=== PATIENT | female | born 1940 | race Caucasian/White ===

== ENCOUNTER 2022-10-27 06:35 | Observation (INO) | payer MEDICARE, MEDICAID, SELFPAY ==
[2022-10-27] VITALS (25 sets, daily range): BP systolic 93–124; BP diastolic 45–88; PULSE 60–112; RESP 12–90; TEMP 36.2–36.7; O2SAT 90–100; BMI 32.5
--- NOTE | ~2022-10-27 | CT_ITS ---
EXAMINATION: CT abdomen pelvis w con INDICATION: Vomiting and diarrhea TECHNIQUE: Computed tomographic images of the abdomen and pelvis were obtained after the administrati on of 100 cc of Omnipaque 350 intravenous contrast. The dose-length product (DLP) was 1001.97 mGy-cm. Automated exposure control and iterative reconstruction technique were employed. COMPARISON: None available FINDINGS: Minimal dependent atelectasis is present in the lung bases. The heart size is normal. There is a small sliding hiatal hernia. The gallbladder is surgically absent. There is mild enlargement of the common bile duct and central intrahepatic ducts which is likely due to post cholecystectomy stat e. There is focal fatty infiltration of the liver near the ligamentum teres. The spleen, pancreas, an d adrenal glands are normal. There is a 2 mm nonobstructing stone of the left kidney. The right kidne y is unremarkable. No pathologically enlarged abdominal or pelvic lymph nodes are identified. There i s calcified atherosclerosis of the aorta and many of the other arteries. No free intraperitoneal gas or evidence of bowel obstruction. Colonic diverticulosis is present without evidence of diverticuliti s. The appendix is normal. There is circumferential wall thickening of the urinary bladder. Thoracic and lumbar compression fractures are noted. IMPRESSION: 1. Circumferential wall thickening of the urinary bladder likely reflecting cystitis given patient's abnormal urinalysis. Reviewed, dictated and finalized at location A. IMPRESSION: 1. Circumferential wall thickening of the urinary bladder likely reflecting cys titis given patient's abnormal urinalysis.
--- NOTE | ~2022-10-27 | XR_ITS ---
EXAMINATION: XR chest 1V portable INDICATION: Weakness TECHNIQUE: Portable AP chest at 0806 hours COMPARISON: None available FINDINGS: There is mild atelectasis of the lung bases. The lungs are free of focal airspace opacities . No pleural effusion or pneumothorax. The cardiomediastinal silhouette is normal. Calcified pulmonar y nodules are consistent with old granulomatous disease. IMPRESSION: 1. Mild atelectasis of the lung bases. Reviewed, dictated and finalized at location A.
--- NOTE | 2022-10-27 07:08 | PC.NURSE ---
Patient report received from CHAU Kerr. All questions answered and care of patient assumed.
--- NOTE | 2022-10-27 07:33 | ED.NAVMDI ---
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 Patient reports chronic abdominal bloating. She states she prayed to GOD to help her with her bloating but she did not know it would present like this. Last night she reports having nausea and vomiting. She reports her emesis was brown. She also states she was told by retirement staff that she had diarrhea and it was brown. She was unable to see color of stool or consistency of her stool. She denies current nausea. She denies abdominal pain, chest pain, sob, or fever. She states she was told not to eat tomatoes due to her history of esophagitis but yesterday she at [facility] with tomato sauce for dinner. Related Data Home Medications Medication Instructions Recorded Confirmed acetaminophen 325 mg capsule 650 mg PO PRN PRN Pain 10/27/22 10/27/22 (Tylenol) amlodipine 5 mg tablet 5 mg PO DAILY 10/27/22 10/27/22 apixaban 5 mg tablet (Eliquis) 5 mg PO BID 10/27/22 10/27/22 atorvastatin 80 mg tablet 80 mg PO HS 10/27/22 10/27/22 benzonatate 100 mg capsule 100 mg PO TID PRN Cough 10/27/22 10/27/22 carvedilol 6.25 mg tablet (Coreg) 6.25 mg PO DAILY 10/27/22 10/27/22 cetylpyridinium chloride 1 michael mucous membrane Q2H PRN Sore 10/27/22 10/27/22 Throat citalopram 10 mg tablet 10 mg PO DAILY 10/27/22 10/27/22 famotidine 20 mg tablet 20 mg PO DAILY 10/27/22 10/27/22 ferrous sulfate 325 mg (65 mg 325 mg PO TID 10/27/22 10/27/22 iron) tablet gabapentin 300 mg capsule 300 mg PO HS 10/27/22 10/27/22 guaifenesin 600 mg tablet, 600 mg PO HS 10/27/22 10/27/22 extended release 12 hr (Mucinex) insulin aspart U-100 100 unit/mL sliding scale dose subcut ACHS 10/27/22 (3 mL) subcutaneous pen (Novolog FlexPen U-100 Insulin aspart) insulin glargine 100 unit/mL 30 unit subcut HS 10/27/22 10/27/22 subcutaneous cartridge lisinopril 40 mg tablet 40 mg PO DAILY 10/27/22 10/27/22 loperamide 2 mg capsule 2 mg PO ONCE 10/27/22 10/27/22 loratadine 10 mg tablet (Claritin) 10 mg PO DAILY 10/27/22 10/27/22 polysorbate 80-glycerin 1 %-1 % 1 drp ophthalmic (eye) BID 10/27/22 10/27/22 eye drops in a dropperette potassium chloride 20 mEq 20 meq PO DAILY 10/27/22 10/27/22 tablet,extended release sitagliptin phosphate 50 mg tablet 50 mg PO DAILY 10/27/22 10/27/22 (Januvia) Allergies Allergy/AdvReac Type Severity Reaction Status Date / Time Penicillins Allergy Swelling Verified 10/27/22 06:43 of Lip/Tongue/Throat Review of Systems Constitutional: Constitutional: Denies weakness Cardiovascular: Cardiovascular: Denies syncope, Denies rapid heart rate, Denies irregular heart rhythm, Denies leg edema and Denies dyspnea Respiratory: Respiratory: Denies chest congestion, Denies hemoptysis, Denies excessive phlegm production and Denies dyspnea Gastrointestinal: Gastrointestinal: Denies abdominal pain, Reports bloating, Denies hematochezia, Reports constipation, Reports diarrhea, Reports nausea and Reports vomiting Genitourinary: Genitourinary: Denies hematuria and Denies dysuria Musculoskeletal: Musculoskeletal: Denies joint swelling, Denies loss of height and Reports muscle weakness (chronic right side) Neurologic: Denies syncope, Reports focal weakness (right leg weakness) and Denies weakness PMFSH Past Medical History Medical History (Updated 10/27/22 @ 13:08 by Vi Cash PAMinal) Arteriovenous malformation of gastrointestinal tract Atrial fibrillation Cerebrovascular accident GERD with esophagitis
[2022-10-27] MEDS: SODIUM CHLORIDE 0.9% IV 1,000 ML 999 ML IV CONT (07:43)
[2022-10-27] MEDS: PANTOPRAZOLE SODIUM IV 40 MG VIAL IV PUSH ×2 (07:43→20:28)
[2022-10-27] MEDS: ONDANSETRON INJ 4 MG/2 ML VIAL IV PUSH ×2 (07:43→20:28)
[2022-10-27 08:19] LABS: Basophils Absolute Auto 0.1 K/mm3 (0.0-0.1); Basophils Percent Auto 0.6 % (0.2-1.2); Eosinophils Absolute Auto 0.4 K/mm3 (0-0.3); Eosinophils Percent Auto 2.5 % (0-4.4); Hematocrit 45.4 % (37.0-47.0); Hemoglobin 14.7 g/dL (12.0-15.0); Immature Granulocyte Absolute 0.09 K/mm3 (0.00-0.031); Immature Granulocyte Percent A 0.6 % (0-0.5); Lymphocytes Absolute Auto 2.38 K/mm3 (0.9-3.2); Lymphocytes Percent Auto 14.9 % (18.3-44.2); Mean Corpuscular HGB Conc 32.4 g/dl (32-36); Mean Corpuscular Hemoglobin 30.6 pg (26-34); Mean Corpuscular Volume 94.4 fl (80-100); Mean Platelet Volume 10.6 fl (7.4-10.4); Monocytes Percent Auto 6.5 % (2.6-8.5); Neutrophils Absolute Auto 11.9 K/mm3 (1.3-6.7); Neutrophils Percent Auto 74.9 % (45.5-73.1); Platelet Count Result 269 k/mm3 (150-375); Red Blood Count 4.81 M/mm3 (4.2-5.4); Red Cell Distribution Width 13.2 % (11.5-14.5); White Blood Count 15.9 K/mm3 (4.5-10.0)
[2022-10-27 08:29] LABS: Alanine Aminotransferase 19 U/L (6-35); Albumin Level 4.5 g/dL (3.5-5.1); Alkaline Phosphatase 126 U/L (38-126); Anion Gap 8 mmol/L (8-16); Aspartate Amino Transferase 27 U/L (14-36); Bilirubin,Total 0.7 mg/dL (0.2-1.3); Blood Urea Nitrogen 13 mg/dL (7-17); Calcium 9.4 mg/dL (8.4-10.2); Carbon Dioxide 28 mmol/L (22-30); Chloride 107 mmol/L (98-107); Estimated CRCL calculation 44 ml/min; Estimated Glomerular Filt Rate 60; Glucose 188 mg/dL (65-110); Lipase 166 U/L (23-300); Potassium 4.1 mmol/L (3.4-5.0); Sodium 143 mmol/L (137-145)
[2022-10-27 08:38] LABS: Appearance Urine Turbid (Clear); Bacteria Urine 4+ /hpf; Bilirubin Urine Negative (Negative); Blood Urine 2+ (Negative); Color Urine Yellow (Yellow); Glucose Urine UA Negative (Negative); Ketones Urine Negative (Negative); Leukocyte Esterase Ur 3+ LEU/UL (Negative); Nitrate Urine Negative (Negative); Non Pathogenic Casts 0-2; Protein Urine 1+ mg/dL (Negative); RBC Urine 0-2 /hpf (0-2); Specific Grav Ur 1.013 (1.001-1.035); Squamous Epithelial Cell Urine Many /hpf (Few); Urobilinogen Urine 0.2 mg/dL (<2.0); WBC Clumps Urine Present /HPF; WBC Urine >100 /hpf
[2022-10-27 08:40] LABS: Add Urine Microscopic? YES
--- NOTE | 2022-10-27 08:51 | PC.NURSE ---
Patient off unit to CT.
[2022-10-27 08:54] LABS: Lactic Acid Reflex 1.6 mmol/L (0.7-2.0)
--- NOTE | 2022-10-27 11:15 | ADMGEN ---
This patient, Rashaun Pimentel, was admitted to Medical Room 244-. Patient/family oriented to hospital policies and general routines including ID bracelet, bed and alarms, visiting hours, pain management, procedures, bathroom and other care routines, personal items, smoking policy, room service/diet, and visiting hours. Information on how to activate the Rapid Response Team has been discussed. Patient/Family are encouraged to report perceived risks to care and to ask questions if they do not understand what they are told or what they should do. Report received from CHAU Mendoza
[2022-10-27 11:58] LABS: Glucose Point of Care 170 mg/dl (65-105)
--- NOTE | 2022-10-27 12:58 | PM.IMHP ---
H&P: HPI History of Present Illness Date/Time: 10/27/22 13:00 Chief Complaint: Vomiting and diarrhea. Narrative: This is an 82-year-old female with history of stroke, atrial fibrillation, GERD, esophagitis, GI AVMs, hypertension, and diabetes who presented to the emergency department via EMS from [facility] for evaluation of vomiting and diarrhea. Last night she developed nausea and she reports having multiple episodes of what sounds like coffee-ground emesis. She also had several episodes of diarrhea however she is unable to say whether or not there was blood in the stools as she did not look at it though [facility] staff told her it looked brown. She has frequent abdominal bloating which is not new for her and today is no different. She has a history of esophagitis and was told not to eat tomatoes however yesterday she had ravioli with tomato sauce for dinner. She wonders if this precipiated her symptoms. On arrival to the emergency department her blood pressure was 93/69 but that has improved significantly with IV fluids. Labs were significant for a WBC count of 15.9, hemoglobin 14.7, and a relatively unremarkable CMP aside from a random glucose of 188. Urine was negative for nitrates but showed 3+ leukocyte esterase, > 100 WBC, WBC clumps, 4+ bacteria, and many squamous cells. CT of the abdomen and pelvis showed circumferential wall thickening of the urinary bladder likely reflecting cystitis. Stool was Hemoccult positive. She was given a dose of ceftriaxone for suspected urinary tract infection and she is being admitted in this setting for close observation and GI consultation given reports of hematemesis. Review of Systems Review of Systems: Twelve systems were reviewed. No fever, chills, or sweats. No recent cold or flu symptoms. She denies epigastric and abdominal pain. She denies overt dysuria. No epigastric or abdominal pain. She is transferred with a Siva lift as she has essentially no movement of the right leg from a previous stroke. Except as documented, all other systems were reviewed and are negative. 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 Grandparent Hypertension Social History Social History Social History: Surrogate medical decision maker: Myriam Cohn, daughter. Code status: Full code. Smoking status: Never smoker Second hand tobacco smoke exposure: Yes (as a child) Alcohol intake: never Substance use: never Lack of Transportation: No Lack of Food: Never True Current Housing: I Have Housing Concerned About Future Housing: No Difficulty Paying Gas/Electric Bills: No Difficulty Paying for Meds: No Currently Unemployed: No Education: High School Diploma/GED Difficulty w/ Childcare or Family Care: No Additional living arrangements comments: [facility]. Spiritual care concerns: Yes (Faith) Meds Home Medications and Allergies Home Medications Medication Instructions Recorded Confirmed Type acetaminophen 325 mg capsule 650 mg PO PRN PRN Pain 10/27/22 10/27/22 History (Tylenol) amlodipine 5 mg tablet 5 mg PO DAILY 10/27/22 10/27/22 History apixaban 5
[2022-10-27] MEDS: SODIUM CHLORIDE 0.9% IV 1,000 ML 125 ML IV CONT ×2 (13:39→20:27)
[2022-10-27 14:49] LABS: Hematocrit 41.6 % (37.0-47.0); Hemoglobin 13.1 g/dL (12.0-15.0)
[2022-10-27 14:58] LABS: Hemoglobin A1C 6.3 % (<5.7)
[2022-10-27 17:11] LABS: Glucose Point of Care 275 mg/dl (65-105)
[2022-10-27] MEDS: INSULIN ASPART (*BKC) 100 UNITS/ML SUB-Q (17:18)
[2022-10-27 20:24] LABS: Hemoglobin 12.5 g/dL (12.0-15.0)
[2022-10-27] MEDS: ATORVASTATIN 40 MG TABLET 80 MG PO (20:28)
[2022-10-27] MEDS: GABAPENTIN 300 MG CAPSULE PO (20:28)
[2022-10-27] MEDS: ACETAMINOPHEN 325 MG TABLET 650 MG PO (20:28)
[2022-10-27] MEDS: guaiFENesin 12 HR 600 MG TABCR PO (20:28)
[2022-10-27 20:41] LABS: Glucose Point of Care 168 mg/dl (65-105)
[2022-10-28] VITALS (12 sets, daily range): BP systolic 106–138; BP diastolic 52–76; PULSE 79–104; RESP 16–18; TEMP 36.3–36.9; O2SAT 93–96
[2022-10-28 03:50] LABS: Basophils Absolute Auto 0.1 K/mm3 (0.0-0.1); Basophils Percent Auto 0.4 % (0.2-1.2); Eosinophils Absolute Auto 0.6 K/mm3 (0-0.3); Eosinophils Percent Auto 5.3 % (0-4.4); Hematocrit 36.9 % (37.0-47.0); Hemoglobin 11.7 g/dL (12.0-15.0); Immature Granulocyte Absolute 0.04 K/mm3 (0.00-0.031); Immature Granulocyte Percent A 0.4 % (0-0.5); Lymphocytes Absolute Auto 3.17 K/mm3 (0.9-3.2); Lymphocytes Percent Auto 27.8 % (18.3-44.2); Mean Corpuscular HGB Conc 31.7 g/dl (32-36); Mean Corpuscular Hemoglobin 30.5 pg (26-34); Mean Corpuscular Volume 96.3 fl (80-100); Mean Platelet Volume 10.2 fl (7.4-10.4); Monocytes Percent Auto 8.7 % (2.6-8.5); Neutrophils Absolute Auto 6.6 K/mm3 (1.3-6.7); Neutrophils Percent Auto 57.4 % (45.5-73.1); Platelet Count Result 217 k/mm3 (150-375); Red Blood Count 3.83 M/mm3 (4.2-5.4); Red Cell Distribution Width 13.4 % (11.5-14.5); White Blood Count 11.4 K/mm3 (4.5-10.0)
[2022-10-28 04:03] LABS: Alanine Aminotransferase 15 U/L (6-35); Albumin Level 3.3 g/dL (3.5-5.1); Alkaline Phosphatase 75 U/L (38-126); Anion Gap 6 mmol/L (8-16); Aspartate Amino Transferase 21 U/L (14-36); Bilirubin,Total 0.6 mg/dL (0.2-1.3); Blood Urea Nitrogen 9 mg/dL (7-17); Calcium 7.6 mg/dL (8.4-10.2); Carbon Dioxide 24 mmol/L (22-30); Chloride 108 mmol/L (98-107); Estimated CRCL calculation 56 ml/min; Estimated Glomerular Filt Rate > 60; Glucose 170 mg/dL (65-110); Magnesium 1.7 mg/dL (1.6-2.3); Potassium 3.3 mmol/L (3.4-5.0); Sodium 138 mmol/L (137-145)
[2022-10-28] MEDS: PANTOPRAZOLE SODIUM IV 40 MG VIAL IV PUSH ×2 (08:27→20:40)
[2022-10-28 08:33] LABS: Glucose Point of Care 142 mg/dl (65-105)
[2022-10-28] MEDS: LORATADINE 10 MG TABLET PO (09:00)
[2022-10-28] MEDS: CITALOPRAM HYDROBROMIDE 10 MG TABLET PO (09:02)
--- NOTE | 2022-10-28 10:28 | PM.IMPN ---
Progress Note: A&P Assessment and Plan (1) GI bleeding: Code(s): K92.2 - Gastrointestinal hemorrhage, unspecified Status: Acute Assessment and Plan: She had what sounds like hematemesis last evening and her stool was occult blood on exam today. Blood pressures were a bit soft on arrival but have been stable since receiving IV fluids. Her hemoglobin has been stable thus far. GI consulted. (2) Cystitis: Code(s): N30.90 - Cystitis, unspecified without hematuria Status: Acute Assessment and Plan: Circumferential wall thickening of the urinary bladder noted on CT and in conjunction with abnormal urinalysis she has been started on ceftriaxone, pending urine culture. (3) Atrial fibrillation: Code(s): I48.91 - Unspecified atrial fibrillation Status: Acute Assessment and Plan: Continue carvedilol. Hold Eliquis given GI bleeding. (4) Type 2 diabetes mellitus: Code(s): E11.9 - Type 2 diabetes mellitus without complications Status: Acute Assessment and Plan: Initiate sliding scale insulin, Accu-Cheks, and hypoglycemic protocol. Check hemoglobin A1c. (5) Hypertension: Code(s): I10 - Essential (primary) hypertension Status: Acute Assessment and Plan: Continue carvedilol with parameters. Hold other antihypertensives given soft blood pressures on arrival. Plan Medical decision making narrative ? History obtained from: Patient. ? History from independent sources: None. ? External chart review: n/a ? New problems addressed: GI bleeding, cystitis. ? Chronic illnesses addressed: Diabetes, hypertension, atrial fibrillation. ? Independent interpretation of studies: Labs, imaging, EKG, and all reports were personally reviewed. ? Diagnostic tests considered but not ordered: None. ? Shared decision making: Findings were reviewed and discussed with the patient, including plans for further workup and treatment options. Questions solicited and answered to satisfaction. Patient agrees with current plan of care. Subjective Date/time seen: 10/28/22 10:28 Interval history: noNew complaints Exam Narrative: General: Nontoxic-appearing female sitting up in bed in no acute distress. Weight: 83.5 kg. BMI: 32.6. HEENT: PERRL, EOMI. Sclera anicteric. Mouth is a bit dry. She is edentulous. Neck: Supple. Respiratory: Lungs are clear to auscultation bilaterally. Cardiovascular: Regular rate and rhythm with S1-S2. Gastrointestinal: Abdomen is soft, obese, nontender, and nondistended with positive bowel sounds. Skin: Warm and dry. No rash or lesions on limited exam. Extremities: No cyanosis or clubbing. Trace lower extremity bilaterally. Neurological: Alert and oriented. Cranial nerves 2-12 are grossly intact. She has significant weakness of her right lower leg from previous stroke. Psychiatric: Pleasant and cooperative with normal mood and affect. Judgment and insight intact. Objective Data Vital Signs Vital Signs: Vital Signs - 24 hr 10/27/22 10:30 10/27/22 10:31 10/27/22 12:00 Temperature Pulse Rate 90 95 87 Respiratory Rate 12 20 Blood Pressure 113/81 Pulse Oximetry 96 Oxygen Delivery 10/27/22 13:41 10/27/22 16:00 10/27/22 20:53 Temperature 98.1 F Pulse Rate 82 89 Respiratory Rate 18 Blood Pressure 115/46 L Pulse Oximetry 95 Oxygen Delivery Room Air 10/27/22 21:44 10/27/22 21:47 10/27/22 20:00 Temperature 97.2 F L 97.2 F L Pulse Rate 60 91 91 Respiratory Rate 90 H 17 Blood Pressure 112/45 L 113/51 L Pulse Oximetry 90 90 Oxygen Delivery 10/27/22 20:00 10/28/22 05:15 10/28/22 00:00 Temperature 98.4 F Pulse Rate 91 104 H 102 H Respiratory Rate 17 17 Blood Pressure 108/55 L Pulse Oximetry 90 93 Oxygen Delivery Room Air 10/28/22 04:00 10/28/22 07:43 10/28/22 07:43 Temperature 98.4 F Pulse Rate 79 Respiratory Rate Blood Pressure 108/55 L Pulse
[2022-10-28 12:19] LABS: Glucose Point of Care 141 mg/dl (65-105)
--- NOTE | 2022-10-28 15:01 | WPDGICN ---
Assessment and Plan Assessment and plan (1) Coffee ground emesis: Code(s): K92.0 - Hematemesis Status: Acute Assessment and Plan: Patient is reported to have had coffee-ground emesis at the [facility] suggesting possible gastritis or ulceration. EGD will be performed given risk of anticoagulation and occult blood in stool. Hemoglobin has declined from 14-11.7 since admission. Likely partially because of rehydration. 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 Apparently because of atrial fibrillation. This will need to be held until it is safe to resume. EGD and colonoscopy will be anticipated. Preparation today with procedure in the morning. (4) History of CVA (cerebrovascular accident): Code(s): Z86.73 - Personal history of transient ischemic attack (TIA), and cerebral infarction without residual deficits Status: Acute (5) Positive fecal occult blood test: Code(s): R19.5 - Other fecal abnormalities Status: Acute Assessment and Plan: Patient found to have occult blood in stool. Patient has been Eliquis and with Eliquis. Potentially related to history of coffee-ground emesis but other lesions cannot be excluded. Given her anticoagulation possible need for continuing this anticoagulation and decline in hemoglobin from 14-11.7 will plan to proceed with colonoscopy an EGD in morning. GI Consult Note Consult date/time: 10/28/22 15:01 Reason for consult: Occult blood in stool, coffee-ground emesis HPI: Rashaun Pimentel is a 82 year old female I am asked to see at the request of the hospitalist service. Patient is in the [facility] because of a CVA in residual right foot drop. She has a history of atrial fibrillation is reported to have had esophagitis in angiodysplasias of the intestinal tract. No old records are available for my review. Patient noted to have coffee-ground emesis at the [facility] apparently on Friday and was admitted the hospital for further evaluation. In the emergency room she was noted to have Hemoccult-positive stools. Patient reports currently she feels fine but is somewhat hungry not being allowed to eat since admission the hospital. After admission hospital patient was found to have cystitis is presumed to have urinary tract infection. Family history is noncontributory. Patient states she has been on blood thinners. The exact 8 because of the atrial fibrillation.. Medications the time of presentation include Eliquis. Review of Systems Review of Systems: Review of systems noncontributory. 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 Grandparent Hypertension Social History Social History Social History: Surrogate medical decision maker: Myriam Cohn, daughter. Code status: Full code. Smoking status: Never smoker Second hand tobacco smoke exposure: Yes (as a child) Alcohol intake: never Substance use: never Lack of Tr
[2022-10-28] MEDS: PEG (High)/E-LYTE SOLN 4,000 ML BTL 4000 ML PO (16:02)
[2022-10-28] MEDS: carvediloL 6.25 MG TABLET PO (16:03)
--- NOTE | 2022-10-28 16:52 | PC.NURSE ---
Bowel prep started after med delivered at 1602.
[2022-10-28 17:03] LABS: Glucose Point of Care 205 mg/dl (65-105)
[2022-10-28] MEDS: INSULIN ASPART (*BKC) 100 UNITS/ML SUB-Q ×2 (17:54→20:41)
[2022-10-28 20:33] LABS: Glucose Point of Care 216 mg/dl (65-105)
[2022-10-28] MEDS: SODIUM CHLORIDE 0.9% IV 1,000 ML 125 ML IV CONT (20:38)
[2022-10-28] MEDS: ATORVASTATIN 40 MG TABLET 80 MG PO (20:39)
[2022-10-28] MEDS: GABAPENTIN 300 MG CAPSULE PO (20:40)
[2022-10-28] MEDS: guaiFENesin 12 HR 600 MG TABCR PO (20:40)
[2022-10-28] MEDS: ACETAMINOPHEN 325 MG TABLET 650 MG PO (20:45)
[2022-10-29] VITALS (15 sets, daily range): BP systolic 127–150; BP diastolic 69–92; PULSE 80–104; RESP 14–24; TEMP 36.2–36.8; O2SAT 94–98
[2022-10-29 08:22] LABS: Glucose Point of Care 138 mg/dl (65-105)
--- NOTE | 2022-10-29 08:34 | PC.NURSE ---
Called GI lab to inform that patient did not finish and not tolerating bowel prep. Stools are clear yellow liquid. Asked if patient needs to continue bowel prep or is ok to stop. Amie from GI stated she's ok to stop bowel prep.
[2022-10-29] MEDS: LORATADINE 10 MG TABLET PO (08:44)
[2022-10-29] MEDS: PANTOPRAZOLE SODIUM IV 40 MG VIAL IV PUSH ×2 (08:44→20:30)
[2022-10-29] MEDS: carvediloL 6.25 MG TABLET PO (08:44)
[2022-10-29] MEDS: CITALOPRAM HYDROBROMIDE 10 MG TABLET PO (08:44)
--- NOTE | 2022-10-29 10:28 | PM.IMPN ---
Progress Note: A&P Assessment and Plan (1) GI bleeding: Code(s): K92.2 - Gastrointestinal hemorrhage, unspecified Status: Acute Assessment and Plan: monitor hemoglobin. Plan for EGD today. (2) Cystitis: Code(s): N30.90 - Cystitis, unspecified without hematuria Status: Acute Assessment and Plan: Circumferential wall thickening of the urinary bladder noted on CT and in conjunction with abnormal urinalysis she has been started on ceftriaxone, pending urine culture. (3) Atrial fibrillation: Code(s): I48.91 - Unspecified atrial fibrillation Status: Acute Assessment and Plan: Continue carvedilol. Hold Eliquis given GI bleeding. (4) Type 2 diabetes mellitus: Code(s): E11.9 - Type 2 diabetes mellitus without complications Status: Acute Assessment and Plan: Initiate sliding scale insulin, Accu-Cheks, and hypoglycemic protocol. Check hemoglobin A1c. (5) Hypertension: Code(s): I10 - Essential (primary) hypertension Status: Acute Assessment and Plan: Continue carvedilol with parameters. Hold other antihypertensives given soft blood pressures on arrival. Subjective Date/time seen: 10/29/22 10:28 Interval history: New complaints. No bleeding noted. Tolerating IV antibiotics Exam Narrative: General: Nontoxic-appearing female sitting up in bed in no acute distress. Weight: 83.5 kg. BMI: 32.6. HEENT: PERRL, EOMI. Sclera anicteric. Mouth is a bit dry. She is edentulous. Neck: Supple. Respiratory: Lungs are clear to auscultation bilaterally. Cardiovascular: Regular rate and rhythm with S1-S2. Gastrointestinal: Abdomen is soft, obese, nontender, and nondistended with positive bowel sounds. Skin: Warm and dry. No rash or lesions on limited exam. Extremities: No cyanosis or clubbing. Trace lower extremity bilaterally. Neurological: Alert and oriented. Cranial nerves 2-12 are grossly intact. She has significant weakness of her right lower leg from previous stroke. Psychiatric: Pleasant and cooperative with normal mood and affect. Judgment and insight intact. Objective Data Vital Signs Vital Signs: Vital Signs - 24 hr 10/28/22 15:12 10/28/22 16:03 10/28/22 12:00 Temperature 97.4 F L Pulse Rate 86 80 89 Respiratory Rate 16 Blood Pressure 106/52 L Pulse Oximetry 94 Oxygen Delivery 05/22/23 16:00 10/28/22 20:00 10/28/22 20:03 Temperature 98.5 F 98.5 F Pulse Rate 90 93 93 Respiratory Rate 18 18 Blood Pressure 138/76 136/74 Pulse Oximetry 96 96 Oxygen Delivery 10/28/22 21:02 10/28/22 20:00 10/28/22 20:00 Temperature 98.5 F Pulse Rate 93 93 93 Respiratory Rate 18 18 Blood Pressure 138/76 Pulse Oximetry 96 96 Oxygen Delivery Room Air 10/29/22 00:00 10/29/22 05:17 10/29/22 04:00 Temperature 98.3 F Pulse Rate 104 H 83 94 Respiratory Rate 18 Blood Pressure 135/69 Pulse Oximetry 96 Oxygen Delivery 10/29/22 08:44 10/29/22 08:45 Temperature Pulse Rate 93 85 Respiratory Rate 14 Blood Pressure 148/75 H Pulse Oximetry 94 Oxygen Delivery Intake/Output Intake/Output: Intake & Output 10/26/22 10/27/22 10/28/22 10/29/22 23:59 23:59 23:59 23:59 Intake Total 2620 1650 Output Total 100 Balance 2520 1650 Meds/Results Medications: Active Medications Generic Name Dose Route Start Last Admin Trade Name Freq PRN Reason Stop Dose Admin Acetaminophen 650 mg 10/27/22 13:08 10/28/22 20:45 Acetaminophen 325 Mg Tablet PO 650 mg Q6H PRN Administration Mild Pain (1-3) or Fever Atorvastatin Calcium 80 mg 10/27/22 21:00 10/28/22 20:39 Atorvastatin 40 Mg Tablet PO 80 mg HS ELIZABETH Administration Carvedilol 6.25 mg 10/28/22 09:00 10/29/22 08:44 Carvedilol 6.25 Mg Tablet PO 6.25 mg DAILY ELIZABETH Administration Citalopram Hydrobromide 10 mg 10/28/22 09:00 10/29/22 08:44 Citalopram Hydrob
[2022-10-29 12:26] LABS: Glucose Point of Care 152 mg/dl (65-105)
[2022-10-29] MEDS: SODIUM CHLORIDE 0.9% IV 1,000 ML 125 ML IV CONT (13:18)
[2022-10-29] MEDS: LACTATED RINGERS 1,000 ML 150 ML IV CONT (13:56)
[2022-10-29 14:02] LABS: Glucose Point of Care 155 mg/dl (65-105)
--- NOTE | 2022-10-29 14:29 | WPDANESEPPF ---
Anes - Initial Pre Proc Eval Procedure: Operation Date: 10/29/22 14:45 Proposed Procedures p Esophagogastroduodenoscopy & Colonoscopy - Ashok Genao MD Date/Time: 10/29/22 14:29 Surgeon: Jenny Gibbs DO Pre Op Diagnosis: Vomiting, diarrhea, + fecal occult Patient Data Age: 82 Gender: F Height: 1.6 m Weight: 83.5 kg Last Vital Signs Temp 97.3 F L 10/29/22 13:51 Pulse 90 10/29/22 13:51 Resp 16 10/29/22 13:51 BP 150/80 H 10/29/22 13:51 Pulse Ox 94 10/29/22 13:51 O2 Del Method Room Air 10/29/22 13:51 Allergies Allergy/AdvReac Type Severity Reaction Status Date / Time Penicillins Allergy Swelling Verified 10/29/22 14:24 of Lip/Tongue/Throat Home Medications Medication Instructions Recorded Confirmed Type acetaminophen 325 mg capsule 650 mg PO PRN PRN Pain 10/27/22 10/27/22 History (Tylenol) amlodipine 5 mg tablet 5 mg PO DAILY 10/27/22 10/27/22 History apixaban 5 mg tablet (Eliquis) 5 mg PO BID 10/27/22 10/27/22 History atorvastatin 80 mg tablet 80 mg PO HS 10/27/22 10/27/22 History benzonatate 100 mg capsule 100 mg PO TID PRN Cough 10/27/22 10/27/22 History carvedilol 6.25 mg tablet (Coreg) 6.25 mg PO DAILY 10/27/22 10/27/22 History cetylpyridinium chloride 1 michael mucous membrane Q2H PRN Sore 10/27/22 10/27/22 History Throat citalopram 10 mg tablet 10 mg PO DAILY 10/27/22 10/27/22 History famotidine 20 mg tablet 20 mg PO DAILY 10/27/22 10/27/22 History ferrous sulfate 325 mg (65 mg 325 mg PO TID 10/27/22 10/27/22 History iron) tablet gabapentin 300 mg capsule 300 mg PO HS 10/27/22 10/27/22 History guaifenesin 600 mg tablet, 600 mg PO HS 10/27/22 10/27/22 History extended release 12 hr (Mucinex) insulin aspart U-100 100 unit/mL See Rx Instructions .Route .COMPLEX 10/27/22 10/29/22 History (3 mL) subcutaneous pen (Novolog FlexPen U-100 Insulin aspart) insulin glargine 100 unit/mL 30 unit subcut HS 10/27/22 10/27/22 History subcutaneous cartridge lisinopril 40 mg tablet 40 mg PO DAILY 10/27/22 10/27/22 History loperamide 2 mg capsule 2 mg PO ONCE 10/27/22 10/27/22 History loratadine 10 mg tablet (Claritin) 10 mg PO DAILY 10/27/22 10/27/22 History polysorbate 80-glycerin 1 %-1 % 1 drp ophthalmic (eye) BID 10/27/22 10/27/22 History eye drops in a dropperette potassium chloride 20 mEq 20 meq PO DAILY 10/27/22 10/27/22 History tablet,extended release sitagliptin phosphate 50 mg tablet 50 mg PO DAILY 10/27/22 10/27/22 History (Januvia) Laboratory Tests 10/28/22 10/28/22 10/29/22 17:00 19:50 08:21 POC Capillary Glucose 205 H mg/dl 216 H mg/dl 138 H mg/dl (65-105) (65-105) (65-105) 10/29/22 10/29/22 12:17 13:59 POC Capillary Glucose 152 H mg/dl 155 H mg/dl (65-105) (65-105) Patient hx anesthesia problems: none Family hx anesthesia problems: none Results Review: All pre-operative results and documents have been reviewed as part of the pre-operative evaluation. 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 Grandparent Hypertension Social History Social History Social History: Surrogate medical decision maker: lacy Jean Baptiste
--- NOTE | 2022-10-29 15:16 | SUR.OPER ---
EGD START: 1458; END: 1500. COLONOSCOPY START: 1506; END: 1515.
[2022-10-29 16:14] LABS: Glucose Point of Care 137 mg/dl (65-105)
[2022-10-29 20:25] LABS: Glucose Point of Care 192 mg/dl (65-105)
[2022-10-29] MEDS: guaiFENesin 12 HR 600 MG TABCR PO (20:30)
[2022-10-29] MEDS: GABAPENTIN 300 MG CAPSULE PO (20:30)
[2022-10-29] MEDS: ATORVASTATIN 40 MG TABLET 80 MG PO (20:30)
[2022-10-29] MEDS: ACETAMINOPHEN 325 MG TABLET 650 MG PO (20:35)
[2022-10-30] VITALS (11 sets, daily range): BP systolic 140–158; BP diastolic 69–85; PULSE 84–99; RESP 16–18; TEMP 36.2–37.1; O2SAT 96–97
[2022-10-30] MEDS: SODIUM CHLORIDE 0.9% IV 1,000 ML 125 ML IV CONT ×3 (03:01→22:47)
[2022-10-30 08:31] LABS: Glucose Point of Care 194 mg/dl (65-105)
[2022-10-30] MEDS: PANTOPRAZOLE SODIUM IV 40 MG VIAL IV PUSH ×2 (08:58→20:18)
[2022-10-30] MEDS: CITALOPRAM HYDROBROMIDE 10 MG TABLET PO (08:59)
[2022-10-30] MEDS: carvediloL 6.25 MG TABLET PO (08:59)
[2022-10-30] MEDS: LORATADINE 10 MG TABLET PO (08:59)
[2022-10-30] MEDS: CEFDINIR 300 MG CAPSULE PO ×2 (08:59→20:18)
[2022-10-30 09:05] LABS: Hemoglobin 12.4 g/dL (12.0-15.0); Mean Corpuscular HGB Conc 32.6 g/dl (32-36); Mean Corpuscular Hemoglobin 30.3 pg (26-34); Mean Corpuscular Volume 92.9 fl (80-100); Platelet Count Result 230 k/mm3 (150-375); Red Blood Count 4.09 M/mm3 (4.2-5.4); Red Cell Distribution Width 12.9 % (11.5-14.5)
[2022-10-30 09:18] LABS: Alanine Aminotransferase 17 U/L (6-35); Albumin Level 3.9 g/dL (3.5-5.1); Alkaline Phosphatase 93 U/L (38-126); Anion Gap 6 mmol/L (8-16); Aspartate Amino Transferase 25 U/L (14-36); Bilirubin,Total 0.6 mg/dL (0.2-1.3); Blood Urea Nitrogen 3 mg/dL (7-17); Carbon Dioxide 29 mmol/L (22-30); Chloride 105 mmol/L (98-107); Estimated CRCL calculation 80 ml/min; Estimated Glomerular Filt Rate > 60; Glucose 189 mg/dL (65-110); Magnesium 1.4 mg/dL (1.6-2.3); Potassium 3.3 mmol/L (3.4-5.0); Sodium 140 mmol/L (137-145)
[2022-10-30 12:09] LABS: Glucose Point of Care 230 mg/dl (65-105)
[2022-10-30] MEDS: INSULIN ASPART (*BKC) 100 UNITS/ML SUB-Q ×2 (12:27→20:16)
[2022-10-30] MEDS: MAGNESIUM SULF 2 GM/WATER 50ML 2 GM/50 ML BAG IVPB (12:32)
[2022-10-30] MEDS: POTASSIUM CHLORIDE 20 MEQ TABLET 40 MEQ PO (12:32)
--- NOTE | 2022-10-30 15:59 | WPDANESPN ---
Anes - Prog Note Post-Op Date/Time: 10/30/22 15:59 Cardiovascular status: normal Respiratory status: normal Airway patency: baseline Mental status: baseline Post-Op hydration status: normal Vital Signs: Last Vital Signs Temp 37.1 C 10/30/22 14:26 Pulse 94 10/30/22 14:26 Resp 16 10/30/22 14:26 BP 158/85 H 10/30/22 14:26 Pulse Ox 97 10/30/22 14:26 O2 Del Method Room Air 10/30/22 08:00 Pain Score (VAS): 08/16 I/O: Intake & Output 10/29/22 10/30/22 10/30/22 23:59 07:59 15:59 Intake Total 7774 702 9790 Balance 4236 881 5043 Laboratory Tests 10/30/22 08:58 10/30/22 08:58 10/29/22 10/29/22 10/30/22 16:06 20:21 08:27 WBC RBC Hgb Hct MCV MCH MCHC RDW Plt Count MPV Sodium Potassium Chloride Carbon Dioxide Anion Gap BUN Creatinine Estim Creat Clear Calc Estimated GFR Glucose POC Capillary Glucose 137 H 192 H 194 H Calcium Magnesium Total Bilirubin AST ALT Alkaline Phosphatase Total Protein Albumin 10/30/22 10/30/22 08:58 12:04 WBC 11.0 H RBC 4.09 L Hgb 12.4 Hct 38.0 MCV 92.9 MCH 30.3 MCHC 32.6 RDW 12.9 Plt Count 230 MPV 10.0 Sodium 140 Potassium 3.3 L Chloride 105 Carbon Dioxide 29 Anion Gap 6 L BUN 3 L D Creatinine 0.50 L Estim Creat Clear Calc 80 Estimated GFR > 60 Glucose 189 H POC Capillary Glucose 230 H Calcium 8.0 L Magnesium 1.4 L Total Bilirubin 0.6 AST 25 ALT 17 Alkaline Phosphatase 93 Total Protein 7.0 Albumin 3.9 Post-procedural complaints: none Patient Feedback: Patient satisfied with anesthetic care.
--- NOTE | 2022-10-30 16:02 | WPDPN ---
Progress Note: A&P Assessment and Plan (1) GI bleeding: Code(s): K92.2 - Gastrointestinal hemorrhage, unspecified Status: Acute Assessment and Plan: monitor hemoglobin. Plan for EGD today. 10/30/2022 interval history: 82-year-old female presented with hematemesis and was seen by GI had endoscopy did not show any source of bleeding suspect most likely gastritis which is healing, patient has no new complete denies any abdominal pain nausea vomiting and able to tolerate her diet, will monitor patient overnight will discharge the patient tomorrow morning (2) Cystitis: Code(s): N30.90 - Cystitis, unspecified without hematuria Status: Acute Assessment and Plan: Circumferential wall thickening of the urinary bladder noted on CT and in conjunction with abnormal urinalysis she has been started on ceftriaxone, pending urine culture. (3) Atrial fibrillation: Code(s): I48.91 - Unspecified atrial fibrillation Status: Acute Assessment and Plan: Continue carvedilol. Hold Eliquis given GI bleeding. (4) Type 2 diabetes mellitus: Code(s): E11.9 - Type 2 diabetes mellitus without complications Status: Acute Assessment and Plan: Initiate sliding scale insulin, Accu-Cheks, and hypoglycemic protocol. Check hemoglobin A1c. (5) Hypertension: Code(s): I10 - Essential (primary) hypertension Status: Acute Assessment and Plan: Continue carvedilol with parameters. Hold other antihypertensives given soft blood pressures on arrival. Subjective Date/time seen: 10/30/22 16:02 Interval history: 10/30/2022 interval history: 82-year-old female presented with hematemesis and was seen by GI had endoscopy did not show any source of bleeding suspect most likely gastritis which is healing, patient has no new complete denies any abdominal pain nausea vomiting and able to tolerate her diet, will monitor patient overnight will discharge the patient tomorrow morning Review of Systems Review of Systems: Twelve systems were reviewed. No fever, chills, or sweats. No recent cold or flu symptoms. She denies epigastric and abdominal pain. She denies overt dysuria. No epigastric or abdominal pain. She is transferred with a Siva lift as she has essentially no movement of the right leg from a previous stroke. Except as documented, all other systems were reviewed and are negative. Exam Narrative: Morbidly obese Patient is comfortable, NAD HEENT: eyes are clear and none icteric LUNGS: Normal respiratory effort ABD: distended Lower extremities: no edema SKIN: nonjaundiced Neuro: grossly intact. Objective Data Vital Signs Vital Signs: Vital Signs - 24 hr 10/29/22 20:00 10/29/22 22:00 10/29/22 20:00 Temperature 97.7 F Pulse Rate 92 94 Respiratory Rate 18 Blood Pressure 127/81 Pulse Oximetry 95 Oxygen Delivery Room Air 10/30/22 00:00 10/30/22 04:00 10/30/22 06:00 Temperature 97.2 F L Pulse Rate 94 90 84 Respiratory Rate 18 Blood Pressure 140/69 Pulse Oximetry 97 Oxygen Delivery 10/30/22 08:59 10/30/22 08:00 10/30/22 08:00 Temperature Pulse Rate 96 91 Respiratory Rate Blood Pressure Pulse Oximetry Oxygen Delivery Room Air 10/30/22 12:00 10/30/22 14:26 10/30/22 14:26 Temperature 98.7 F 98.7 F Pulse Rate 98 94 94 Respiratory Rate 16 16 Blood Pressure 158/85 H 158/85 H Pulse Oximetry 97 97 Oxygen Delivery Intake/Output Intake/Output: Intake & Output 10/27/22 10/28/22 10/29/22 10/30/22 23:59 23:59 23:59 23:59 Intake Total 2620 1650 2340 2220 Output Total 100 Balance 2520 1650 2340 2220 Meds/Results Medications: Active Medications Generic Name Dose Route Start Last Admin Trade Name Freq PRN Reason Stop Dose Admin Acetaminophen 650 mg 10/27/22 13:08 10/29/22 20:35 Acetaminophen 325 Mg Tablet PO 650 mg Q6H PRN Administration Mi
[2022-10-30 17:06] LABS: Glucose Point of Care 189 mg/dl (65-105)
[2022-10-30] MEDS: ATORVASTATIN 40 MG TABLET 80 MG PO (20:18)
[2022-10-30] MEDS: guaiFENesin 12 HR 600 MG TABCR PO (20:18)
[2022-10-30] MEDS: GABAPENTIN 300 MG CAPSULE PO (20:18)
[2022-10-30] MEDS: ACETAMINOPHEN 325 MG TABLET 650 MG PO (22:45)
[2022-10-31] VITALS: PULSE 103
[2022-10-31 00:21] LABS: Glucose Point of Care 222 mg/dl (65-105)
[2022-10-31 04:00] VITALS: PULSE 98
[2022-10-31 06:00] VITALS: BP 142/84; PULSE 86; RESP 16; TEMP 36.6; O2SAT 94
[2022-10-31] MEDS: SODIUM CHLORIDE 0.9% IV 1,000 ML 125 ML IV CONT (06:14)
[2022-10-31 08:00] VITALS: PULSE 86
[2022-10-31 08:37] VITALS: PULSE 82
[2022-10-31] MEDS: carvediloL 6.25 MG TABLET PO (08:37)
[2022-10-31] MEDS: CEFDINIR 300 MG CAPSULE PO (08:37)
[2022-10-31] MEDS: MAGNESIUM OXIDE 400 MG TABLET PO (08:37)
[2022-10-31] MEDS: CITALOPRAM HYDROBROMIDE 10 MG TABLET PO (08:37)
[2022-10-31] MEDS: LORATADINE 10 MG TABLET PO (08:37)
[2022-10-31] MEDS: PANTOPRAZOLE SODIUM IV 40 MG VIAL IV PUSH (08:37)
[2022-10-31 08:41] LABS: Glucose Point of Care 192 mg/dl (65-105)
--- NOTE | 2022-10-31 10:48 | PM.DS ---
DS: Admitting Diagnosis Discharge Date 10/31/2022 Admitting Diagnosis Vomiting and diarrhea. DS: Discharge Diagnosis Discharge Diagnosis (1) GI bleeding: Code(s): K92.2 - Gastrointestinal hemorrhage, unspecified Status: Acute Assessment and Plan: monitor hemoglobin. Plan for EGD today. 10/30/2022 interval history: 82-year-old female presented with hematemesis and was seen by GI had endoscopy did not show any source of bleeding suspect most likely gastritis which is healing, patient has no new complete denies any abdominal pain nausea vomiting and able to tolerate her diet, will monitor patient overnight will discharge the patient tomorrow morning (2) Cystitis: Code(s): N30.90 - Cystitis, unspecified without hematuria Status: Acute Assessment and Plan: Circumferential wall thickening of the urinary bladder noted on CT and in conjunction with abnormal urinalysis she has been started on ceftriaxone, pending urine culture. (3) Atrial fibrillation: Code(s): I48.91 - Unspecified atrial fibrillation Status: Acute Assessment and Plan: Continue carvedilol. Hold Eliquis given GI bleeding. (4) Type 2 diabetes mellitus: Code(s): E11.9 - Type 2 diabetes mellitus without complications Status: Acute Assessment and Plan: Initiate sliding scale insulin, Accu-Cheks, and hypoglycemic protocol. Check hemoglobin A1c. (5) Hypertension: Code(s): I10 - Essential (primary) hypertension Status: Acute Assessment and Plan: Continue carvedilol with parameters. Hold other antihypertensives given soft blood pressures on arrival. DS: Summary Hospital Course Reason for hospitalization: Vomiting and diarrhea. Narrative: This is an 82-year-old female with history of stroke, atrial fibrillation, GERD, esophagitis, GI AVMs, hypertension, and diabetes who [facility] to the emergency department [facility] evaluation of vomiting and diarrhea. Last night she developed nausea and she reports having multiple episodes of what sounds like coffee-ground emesis. She also had several episodes of diarrhea however she is unable to say whether or not there was blood in the stools as she did not look at it though jail staff told her it looked brown. She has frequent abdominal bloating which is not new for her and today is no different. She has a history of esophagitis and was told not to eat tomatoes however yesterday she had ravioli with tomato sauce for dinner. She wonders if this precipiated her symptoms. On arrival to the emergency department her blood pressure was 93/69 but that has improved significantly with IV fluids. Labs were significant for a WBC count of 15.9, hemoglobin 14.7, and a relatively unremarkable CMP aside from a random glucose of 188. Urine was negative for nitrates but showed 3+ leukocyte esterase, > 100 WBC, WBC clumps, 4+ bacteria, and many squamous cells. CT of the abdomen and pelvis showed circumferential wall thickening of the urinary bladder likely reflecting cystitis. Stool was Hemoccult positive. She was given a dose of ceftriaxone for suspected urinary tract infection and she is being admitted in this setting for close observation and GI consultation given reports of hematemesis. Hospital Course: 82-year-old female presented with hematemesis and was seen by GI had endoscopy did not show any source of bleeding suspect most likely gastritis which is healing, patient has no new complete denies any abdominal pain nausea vomiting and able to tolerate her diet, will monitor patient overnight will discharge the patient tomorrow morning. Today patient is clinically stable will discharge the patient with protonix 40 mg BID, patient will follow-up with her GI and her primary care provider as soon as possible, patient presented with today showed urine culture is growing E coli sensitive to cefdinir will continu
[2022-10-31 12:30] LABS: Glucose Point of Care 260 mg/dl (65-105)
[2022-10-31] MEDS: INSULIN ASPART (*BKC) 100 UNITS/ML SUB-Q (12:32)
[2022-10-31 14:52] VITALS: BP 150/76; PULSE 99; RESP 18; TEMP 37.1; O2SAT 96
== END 2022-10-31 16:10 ==
LOC: ANHED 09:53 → ANH2MED 11:31
PROVIDERS: Internal Medicine Gastroenterology; Physician Assistant; Admitting Provider Student in an Organized Health Care Education/Training Program; Emergency Provider General Practice; Visit Provider Family Medicine
PROC: 0DJ08ZZ Inspection of Upper Intestinal Tract, Via Natural or Artificial Opening Endoscopic (ICD-10-PCS; CPT 43235; principal; 2022-10-29 14:45)
DX: K92.2 Gastrointestinal hemorrhage, unspecified (principal); N30.90 Cystitis, unspecified without hematuria; B96.20 Unspecified Escherichia coli [E. coli] as the cause of diseases classified elsewhere; I48.91 Unspecified atrial fibrillation; E11.9 Type 2 diabetes mellitus without complications; I10 Essential (primary) hypertension; I69.359 Hemiplegia and hemiparesis following cerebral infarction affecting unspecified side; R19.5 Other fecal abnormalities; K44.9 Diaphragmatic hernia without obstruction or gangrene; I25.10 Atherosclerotic heart disease of native coronary artery without angina pectoris; I21.9 Acute myocardial infarction, unspecified; K20.90 Esophagitis, unspecified without bleeding; Q27.39 Arteriovenous malformation, other site; R41.0 Disorientation, unspecified; M62.81 Muscle weakness (generalized); J98.11 Atelectasis; K21.9 Gastro-esophageal reflux disease without esophagitis; Z79.1 Long term (current) use of non-steroidal anti-inflammatories (NSAID); Z79.01 Long term (current) use of anticoagulants; Z79.4 Long term (current) use of insulin; Z79.85 Long-term (current) use of injectable non-insulin antidiabetic drugs; Z79.899 Other long term (current) drug therapy
CPT/HCPCS: 43235; 36415; 71045; 74177; 80053; 81001; 82948; 83036; 83605; 83690; 83735; 85014; 85018; 85025; 85027; 87077; 87086; 87186; 96361; 96365; 96366; 96375; 96376; 99285; A9270; C9113; G0378; J0696; J1815; J2405; J2704; J3475; J7030; J7120; Q9967

== ENCOUNTER 2023-05-03 09:09 | Inpatient (IN) | payer MEDICARE, MEDICAID, SELFPAY ==
[2023-05-03] VITALS (16 sets, daily range): BP systolic 125–163; BP diastolic 86–99; PULSE 85–117; RESP 16–24; TEMP 36.4–36.6; O2SAT 93–100; BMI 32.0
--- NOTE | ~2023-05-03 | XR_ITS ---
EXAMINATION: XR chest 2V DATE: 05/03/2023 10:44 INDICATION: Weakness TECHNIQUE: AP and lateral views of the chest are obtained. COMPARISON: 10/27/2022 FINDINGS: There are minimal airspace opacities of the lung bases. No pleural effusion or pneumothorax . The cardiomediastinal silhouette is normal. There is moderate thoracic spondylosis. IMPRESSION: 1. Minimal bibasilar airspace opacities, likely atelectasis. Reviewed, dictated and finalized at location A. [facility] ASSOCIATE
--- NOTE | ~2023-05-03 | CT_ITS ---
EXAMINATION: CT abdomen pelvis w con INDICATION: Generalized abdominal pain, constipation TECHNIQUE: Computed tomographic images of the abdomen and pelvis were obtained after the administrati on of 100 cc of Omnipaque 350 intravenous contrast. The dose-length product (DLP) was 846.16 mGy-cm. Automated exposure control and iterative reconstruction technique were employed. COMPARISON: 10/27/2022 FINDINGS: Minimal dependent atelectasis is present in the lung bases. The heart size is normal. There is a small sliding hiatal hernia. The gallbladder is surgically absent. There is mild enlargement of the common bile duct and central intrahepatic ducts which is likely due to post cholecystectomy stat e. There is focal fatty infiltration of the liver near the ligamentum teres. The spleen, pancreas, an d adrenal glands are normal. There is a 2 mm nonobstructing stone of the left kidney. The right kidne y is unremarkable. No pathologically enlarged abdominal or pelvic lymph nodes are identified. No free intraperitoneal gas or evidence of bowel obstruction. Colonic diverticulosis is present without evid ence of diverticulitis. The appendix is normal. Thoracic and lumbar compression fractures are again n oted. There is mild circumferential wall thickening of the urinary bladder. IMPRESSION: 1. Mild circumferential wall thickening of the urinary bladder which may reflect cystitis. Reviewed, dictated and finalized at location A. [facility] IMPRESSION: 1. Mild circumferential wall thickening of the urinary bladder which may reflec t cystitis.
--- NOTE | 2023-05-03 09:17 | ECG_ITS ---
Measurements Intervals [place] Rate: 96 P: NE: 0 QRS: -8 QRSD: 85 T: -1 QT: 362 QTc: 459 Interpretive Statements ATRIAL FIBRILLATION ANTERIOR INFARCT, AGE INDETERMINATE CONSIDER INFERIOR INFARCT, AGE INDETERMINATE BASELINE ARTIFACT- I, III, AVR, AVL, AVF ABNORMAL ECG NO PREVIOUS ECG AVAILABLE FOR COMPARISON Electronically Signed On 05-03-2023 12:16:15 DENTAL PROSTHETIST by Guillaume Edward D.O.
[2023-05-03 09:49] LABS: Basophils Absolute Auto 0.1 K/mm3 (0.0-0.1); Basophils Percent Auto 0.7 % (0.2-1.2); Eosinophils Absolute Auto 0.3 K/mm3 (0-0.3); Eosinophils Percent Auto 2.2 % (0-4.4); Hematocrit 37.9 % (37.0-47.0); Hemoglobin 12.2 g/dL (12.0-15.0); Immature Granulocyte Absolute 0.03 K/mm3 (0.00-0.031); Immature Granulocyte Percent A 0.3 % (0-0.5); Lymphocytes Absolute Auto 2.83 K/mm3 (0.9-3.2); Lymphocytes Percent Auto 23.6 % (18.3-44.2); Mean Corpuscular HGB Conc 32.2 g/dl (32-36); Mean Corpuscular Hemoglobin 28.2 pg (26-34); Mean Corpuscular Volume 87.7 fl (80-100); Mean Platelet Volume 9.8 fl (7.4-10.4); Monocytes Absolute Auto 1.2 K/mm3 (0.1-0.6); Monocytes Percent Auto 9.6 % (2.6-8.5); Neutrophils Absolute Auto 7.6 K/mm3 (1.3-6.7); Neutrophils Percent Auto 63.6 % (45.5-73.1); Platelet Count Result 288 k/mm3 (150-375); Red Blood Count 4.32 M/mm3 (4.2-5.4); Red Cell Distribution Width 15.4 % (11.5-14.5)
[2023-05-03 10:00] LABS: Alanine Aminotransferase 11 U/L (6-35); Albumin Level 3.8 g/dL (3.5-5.1); Alkaline Phosphatase 111 U/L (38-126); Anion Gap 10 mmol/L (8-16); Aspartate Amino Transferase 26 U/L (14-36); Bilirubin,Total 0.9 mg/dL (0.2-1.3); Blood Urea Nitrogen 8 mg/dL (7-17); Calcium 9.3 mg/dL (8.4-10.2); Carbon Dioxide 23 mmol/L (22-30); Chloride 105 mmol/L (98-107); Estimated CRCL calculation 63 ml/min; Estimated Glomerular Filt Rate > 60; Glucose 145 mg/dL (65-110); Potassium 3.5 mmol/L (3.4-5.0); Sodium 138 mmol/L (137-145)
[2023-05-03 10:11] LABS: Troponin I < 0.012 ng/mL (0.000-0.034)
--- NOTE | 2023-05-03 10:15 | ED.GENADULT ---
HPI - General Adult General Chief complaint: Weakness <Royal De Guzman PA-C - Last Filed: 05/03/23 17:07> Stated complaint: WEAK <Royal De Guzman PA-C - Last Filed: 05/03/23 17:07> Time Seen by Provider: 05/03/23 09:30 <Royal De Guzman PA-C - Last Filed: 05/03/23 17:07> Source: patient <Royal De Guzman PA-C - Last Filed: 05/03/23 17:07> Mode of arrival: ambulatory <Royal De Guzman PA-C - Last Filed: 05/03/23 17:07> Limitations: no limitations <Royal De Guzman PA-C - Last Filed: 05/03/23 17:07> History of Present Illness HPI narrative: This is a 82-year-old female with PMH of CVA, T2 dm, HTN, AFib, leukemia who presents [facility] the ED [facility] with multiple complaints. Patient reports that she feels very generally weak and achy. She reports fatigue for the last couple of days. She has additional complaints of chest tightness, laboring breath, abdominal pain. When asked about the chest pain she states she feels a ?weak pain. Also endorses constipation. Denies fevers, chills, neck pain, headache, urinary problems, back pain, flank pain. <Royal De Guzman PA-C - Last Filed: 05/03/23 17:07> Related Data Home medications: Home Medications Medication Instructions Recorded Confirmed acetaminophen 325 mg capsule 650 mg PO PRN PRN Pain 10/27/22 10/27/22 (Tylenol) amlodipine 5 mg tablet 5 mg PO DAILY 10/27/22 10/27/22 apixaban 5 mg tablet (Eliquis) 5 mg PO BID 10/27/22 10/27/22 atorvastatin 80 mg tablet 80 mg PO HS 10/27/22 10/27/22 benzonatate 100 mg capsule 100 mg PO TID PRN Cough 10/27/22 10/27/22 carvedilol 6.25 mg tablet (Coreg) 6.25 mg PO DAILY 10/27/22 10/27/22 cetylpyridinium chloride 1 michael mucous membrane Q2H PRN Sore 05/21/23 05/21/23 Throat citalopram 10 mg tablet 10 mg PO DAILY 10/27/22 10/27/22 ferrous sulfate 325 mg (65 mg 325 mg PO TID 10/27/22 10/27/22 iron) tablet gabapentin 300 mg capsule 300 mg PO HS 10/27/22 10/27/22 guaifenesin 600 mg tablet, 600 mg PO HS 10/27/22 10/27/22 extended release 12 hr (Mucinex) insulin aspart U-100 100 unit/mL See Rx Instructions .Route .COMPLEX 10/27/22 10/29/22 (3 mL) subcutaneous pen (Novolog FlexPen U-100 Insulin aspart) insulin glargine 100 unit/mL 30 unit subcut HS 10/27/22 10/27/22 subcutaneous cartridge lisinopril 40 mg tablet 40 mg PO DAILY 10/27/22 10/27/22 loperamide 2 mg capsule 2 mg PO ONCE 10/27/22 10/27/22 loratadine 10 mg tablet (Claritin) 10 mg PO DAILY 10/27/22 10/27/22 polysorbate 80-glycerin 1 %-1 % 1 drp ophthalmic (eye) BID 10/27/22 10/27/22 eye drops in a dropperette potassium chloride 20 mEq 20 meq PO DAILY 10/27/22 10/27/22 tablet,extended release sitagliptin phosphate 50 mg tablet 50 mg PO DAILY 10/27/22 10/27/22 (Januvia) <Royal De Guzman PA-C - Last Filed: 05/03/23 17:07> Allergies/adverse reactions: Allergies Allergy/AdvReac Type Severity Reaction Status Date / Time Penicillins Allergy Swelling Verified 11/07/22 11:54 of Lip/Tongue/Throat <Royal De Guzman PA-C - Last Filed: 05/03/23 17:07> Review of Systems Review of Systems: All systems as dictated in HPI <Royal De Guzman PA-C - Last Filed: 05/03/23 17:07> [facility] Past Medical History Medical History: Medical History (Updated 05/03/23 @ 17:05 by Royal De Guzman PA-C) Arteriovenous malformation of gastrointestinal tract Atrial fibrillation Cerebrovascular accident Chronic anticoagulation GERD with esophagitis Hemiplegia of right dominant side due to cerebrovascular disease Hypertension Leukemia (1977) Type 2 diabetes mellitus <Royal De Guzman PA-C - Last Filed: 05/03/23 17:07> Surgical History Surgical History: Surgical History History of cholecystectomy History of hysterectomy History of tonsillectomy <Royal De Guzman PA-C - Last Filed: 05/03/23 17:07> Family History Family History: Family History (Reviewed
[2023-05-03 10:21] LABS: D Dimer 0.74 ug/mL (<0.48)
[2023-05-03 11:04] LABS: NT Pro B Type Natriuretic Pept 824 pg/mL (19.9-100)
[2023-05-03 11:19] LABS: Appearance Urine Cloudy (Clear); Bacteria Urine 4+ /hpf; Bilirubin Urine Negative (Negative); Blood Urine 1+ (Negative); Color Urine Yellow (Yellow); Glucose Urine UA 1+ mg/dL (Negative); Ketones Urine Trace mg/dL (Negative); Leukocyte Esterase Ur 3+ LEU/UL (Negative); Need Manual Microscopic Reviewed; Nitrate Urine Positive (Negative); Protein Urine Negative (Negative); Specific Grav Ur 1.009 (1.001-1.035); Squamous Epithelial Cell Urine None seen /hpf (Few); Urobilinogen Urine 0.2 mg/dL (<2.0); WBC Urine >100 /hpf; pH Urine 5.5 (5.0-9.0)
[2023-05-03 11:20] LABS: Add Urine Microscopic? YES
[2023-05-03 11:38] LABS: Influenza A QL RT-PCR Negative (Negative); Influenza B QL RT-PCR Negative (Negative); RSV RNA, RT-PCR Negative (Negative); SARS-CoV-2 RNA PCR Negative (Negative)
[2023-05-03] MEDS: levoFLOXacin 750 MG/D5W 150 ML 750 MG/150 ML BAG 100 MG IVPB (13:14)
--- NOTE | 2023-05-03 13:24 | PC.NURSE ---
Food tray ordered for pt
--- NOTE | 2023-05-03 14:12 | PM.IMHP ---
H&P: HPI History of Present Illness Date/Time: 05/03/23 15:30 Chief Complaint: Weakness. Narrative: This is an 82-year-old female with history of stroke, atrial fibrillation on anticoagulation, hypertension, insulin-dependent type 2 diabetes mellitus, gastroesophageal reflux disease, esophagitis, and gastrointestinal arteriovenous malformations presented to the emergency department via EMS from [facility] for evaluation for evaluation of weakness. The patient provides following history. She reports having influenza approximately 3 to 4 weeks ago and she continues to feel more fatigued than usual and she also endorses fullness in her years since that time. The last several days however she has become increasingly weak and fatigued and she endorses generalized abdominal discomfort and feeling of bloat in addition to dysuria and malodorous urine. Appetite has not been great but she denies nausea and vomiting. She also denies fever, chills, and sweats. No diarrhea in fact she reports feeling a bit constipated and she is requesting a stool softener. She was afebrile on arrival to the emergency department with stable vital signs. CMP and CBC were pretty unremarkable although her WBC count was elevated at 12.0. Urine was nitrate and leukocyte esterase positive with greater than 100 WBC and 4+ bacteria. She tested negative for influenza, RSV, and COVID. CT of the abdomen and pelvis showed mild circumferential wall thickening of the urinary bladder which may reflect cystitis. She was given a dose of levofloxacin and I was asked to admit her in this setting as she does not feel as though she is able to go back to the snf with this infection as she feels as though she got urine infection from sitting in 30 depends for an extended period of time. Review of Systems Review of Systems: Twelve systems were reviewed. She complains of some ear fullness and hearing loss and having influenza. No ear pain. Appetite has not been great. She denies nausea, vomiting, and diarrhea. She feels a bit constipated. She feels bloated. No belching. She denies epigastric pain and discomfort. Except as documented, all other systems were reviewed and are negative. [facility] Past Medical History Medical History (Updated 05/03/23 @ 17:05 by Royal De Guzman PA-C) Arteriovenous malformation of gastrointestinal tract Atrial fibrillation Cerebrovascular accident Chronic anticoagulation GERD with esophagitis Hemiplegia of right dominant side due to cerebrovascular disease Hypertension Leukemia (1977) Type 2 diabetes mellitus Surgical History Surgical History History of cholecystectomy History of hysterectomy History of tonsillectomy Family History Family History Father Acute myocardial infarction Mother Acute myocardial infarction Cerebrovascular accident Hypertension Breast cancer Other No problems noted. Grandparent Hypertension Social History Social History Social History: Surrogate medical decision maker: Myriam Cohn, daughter. Code status: Full code. Smoking status: Never smoker Second hand tobacco smoke exposure: Yes (as a child) Alcohol intake: never Substance use: never Lack of Transportation: No Lack of Food: Never True Current Housing: I Have Housing Concerned About Future Housing: No Difficulty Paying Gas/Electric Bills: No Difficulty Paying for Meds: No Currently Unemployed: No Education: High School Diploma/GED Difficulty w/ Childcare or Family Care: No Additional living arrangements comments: [facility]. Spiritual care concerns: Yes (Nondenominational) Meds Home Medications and Allergies Home Medications Medication Instructions Recorded Confirmed Type acetaminophen 325 mg capsule 650 mg PO PRN PRN
--- NOTE | 2023-05-03 15:11 | ADMGEN ---
This patient, Rashaun Pimentel, was admitted to [facility] Surg Room 325-01. Patient/family oriented to hospital policies and general routines including ID bracelet, bed and alarms, visiting hours, pain management, procedures, bathroom and other care routines, personal items, smoking policy, room service/diet, and visiting hours. Information on how to activate the Rapid Response Team has been discussed. Patient/Family are encouraged to report perceived risks to care and to ask questions if they do not understand what they are told or what they should do.
[2023-05-03 16:50] LABS: Glucose Point of Care 121 mg/dl (65-105)
[2023-05-03] MEDS: SODIUM CHLORIDE 0.9% IV 1,000 ML 125 ML IV CONT (18:26)
[2023-05-03 20:44] LABS: Glucose Point of Care 108 mg/dl (65-105)
[2023-05-03] MEDS: FLUTICASONE PROPIONATE 0.05% NA SPR 16 GM BTL (*BKC) 1 SPRAY NASAL (20:53)
[2023-05-03] MEDS: MELATONIN 5 MG TABLET PO (20:57)
[2023-05-04] MEDS: SODIUM CHLORIDE 0.9% IV 1,000 ML 125 ML IV CONT ×3 (01:13→22:00)
[2023-05-04 01:31] LABS: Glucose Point of Care 110 mg/dl (65-105)
[2023-05-04 05:58] LABS: Glucose Point of Care 148 mg/dl (65-105)
[2023-05-04 06:00] VITALS: BP 151/88; PULSE 98; RESP 16; TEMP 36; O2SAT 98
[2023-05-04 06:34] LABS: Hematocrit 37.9 % (37.0-47.0); Mean Corpuscular HGB Conc 31.7 g/dl (32-36); Mean Corpuscular Hemoglobin 28.3 pg (26-34); Mean Corpuscular Volume 89.4 fl (80-100); Mean Platelet Volume 9.9 fl (7.4-10.4); Platelet Count Result 258 k/mm3 (150-375); Red Blood Count 4.24 M/mm3 (4.2-5.4); Red Cell Distribution Width 15.2 % (11.5-14.5); White Blood Count 12.5 K/mm3 (4.5-10.0)
[2023-05-04 06:42] LABS: Anion Gap 10 mmol/L (8-16); Blood Urea Nitrogen 6 mg/dL (7-17); Calcium 8.9 mg/dL (8.4-10.2); Carbon Dioxide 22 mmol/L (22-30); Chloride 107 mmol/L (98-107); Estimated CRCL calculation 75 ml/min; Estimated Glomerular Filt Rate > 60; Glucose 131 mg/dL (65-110); Magnesium 1.6 mg/dL (1.6-2.3); Potassium 3.4 mmol/L (3.4-5.0); Sodium 139 mmol/L (137-145)
[2023-05-04 07:53] LABS: Glucose Point of Care 125 mg/dl (65-105)
[2023-05-04 08:40] VITALS: O2SAT 97
[2023-05-04] MEDS: levoFLOXacin 750 MG/D5W 150 ML 750 MG/150 ML BAG 100 MG IVPB (08:42)
[2023-05-04] MEDS: lisinopriL 20 MG TABLET 40 MG PO (08:43)
[2023-05-04] MEDS: FLUTICASONE PROPIONATE 0.05% NA SPR 16 GM BTL (*BKC) 1 SPRAY NASAL ×2 (08:43→21:17)
[2023-05-04] MEDS: ARTIFICIAL TEARS OPHTH SOLN 15 ML BOTTLE 1 DROP EACH EYE ×2 (08:43→16:17)
[2023-05-04] MEDS: PANTOPRAZOLE 40 MG TABLET PO ×2 (08:43→21:16)
[2023-05-04 08:44] VITALS: PULSE 118
[2023-05-04] MEDS: amLODIPine BESYLATE 5 MG TABLET PO (08:44)
[2023-05-04] MEDS: CITALOPRAM HYDROBROMIDE 20 MG TABLET PO (08:44)
[2023-05-04] MEDS: carvediloL 6.25 MG TABLET PO (08:44)
[2023-05-04] MEDS: APIXABAN 5 MG TABLET PO ×2 (08:45→21:16)
[2023-05-04] MEDS: LORATADINE 10 MG TABLET PO (08:45)
[2023-05-04] MEDS: MAGNESIUM OXIDE 400 MG TABLET PO (08:45)
[2023-05-04] MEDS: POTASSIUM CHLORIDE 20 MEQ ER TABLET PO (08:45)
--- NOTE | 2023-05-04 09:13 | PM.IMPN ---
Progress Note: A&P Assessment and Plan (1) Urinary tract infection: Code(s): N39.0 - Urinary tract infection, site not specified Status: Acute (2) Atrial fibrillation: Code(s): I48.91 - Unspecified atrial fibrillation Status: Acute (3) Chronic anticoagulation: Code(s): Z79.01 - group home (current) use of anticoagulants Status: Acute (4) Hypertension: Code(s): I10 - Essential (primary) hypertension Status: Acute (5) Type 2 diabetes mellitus: Code(s): E11.9 - Type 2 diabetes mellitus without complications Status: Acute (6) Sepsis: Code(s): A41.9 - Sepsis, unspecified organism Status: Acute Plan The patient presented to the emergency department for evaluation of multiple complaints, mainly weakness and fatigue. Sepsis Patient has leukocytosis 12,500, left shift, tachycardia tachypnea, likely resulting from UTI Urine culture is pending Order blood culture Patient is on Levaquin IV Start fluid resuscitation UTI Patient has pyuria on urinalysis, urine some post closely Antibiotics see above Follow-up urine culture Chronic AFib she is chronically in atrial fibrillation is rate controlled. Continue carvedilol and apixaban for stroke prophylaxis. Type 2 diabetes Random glucose was 145. Continue Januvia. Continue sliding scale insulin, Accu-Cheks, and hypoglycemic protocol. Check hemoglobin A1c. Hypertension Continue amlodipine 5 mg daily p.o. carvedilol 6 of to 5 mg daily p.o. Hyperlipidemia Continue Lipitor 80 mg daily p.o. Subjective Date/time seen: 05/04/23 09:13 Interval history: I saw exam patient today. Patient still feels weak, denies abdomen pain, nausea vomiting. Patient is bedbound. Patient denies constipation. Has discomfort with urination but no significant dysuria Exam Narrative: General:?Nontoxic-appearing female sitting up in bed in no acute distress. Weight: 82 kg. BMI: 32.0. HEENT:?Wearing corrective lenses. PERRL, EOMI. Sclera anicteric. Mouth is a bit?dry.? She is edentulous. Neck:??Supple. Respiratory:?Lungs are clear to auscultation bilaterally. Cardiovascular:??Regular rate and rhythm with S1-S2.? Gastrointestinal:??Abdomen is soft, obese, nontender, and nondistended with positive bowel sounds. No CVA tenderness. Skin:??Warm and dry. Generalized pallor. Extremities:??No cyanosis or clubbing. Trace lower extremity bilaterally. Musculoskeletal: right hip externally rotated and her knee flexed, chronically stuck in that position, she cannot straighten the leg or bear weight on it. Neurological:??Alert and oriented.? Cranial nerves 2-12 are grossly intact. Bilateral lower extremities are weak due to atrophy; patient is wheelchair-bound Psychiatric:??Pleasant and cooperative with normal mood and affect.? Judgment and insight intact. Objective Data Vital Signs Vital Signs: Vital Signs - 24 hr 05/03/23 09:27 05/03/23 09:30 05/03/23 09:45 Temperature Pulse Rate 94 91 Respiratory Rate 20 19 21 H Blood Pressure Pulse Oximetry 100 99 99 Oxygen Delivery 05/03/23 09:46 05/03/23 10:07 05/03/23 10:42 Temperature Pulse Rate 97 85 Respiratory Rate 21 H 18 22 H Blood Pressure 155/90 H Pulse Oximetry 99 97 Oxygen Delivery 05/03/23 10:52 05/03/23 11:01 05/03/23 11:17 Temperature Pulse Rate 89 86 106 H Respiratory Rate 20 19 23 H Blood Pressure 149/99 H 125/94 H Pulse Oximetry 99 95 Oxygen Delivery 05/03/23 13:16 05/03/23 13:17 05/03/23 13:38 Temperature Pulse Rate 99 105 H Respiratory Rate 19 23 H 24 H Blood Pressure 162/87 H Pulse Oximetry 99 98 94 Oxygen Delivery 05/03/23 13:51 05/03/23 15:38 05/03/23 18:36 Temperature 97.9 F Pulse Rate 114 H 117 H Respiratory Rate 22 H 22 H Blood Pressure 163/86 H Pulse Oximetry 93 94 Oxygen Delivery Room Air 05/03/23 20:00 05/03/23 21:25 05/04/23 06:00 Temperature 97.6 F 96.8 F
[2023-05-04] MEDS: FERROUS SULFATE 325 MG TABLET DR PO ×2 (11:45→16:17)
[2023-05-04 12:20] LABS: Glucose Point of Care 128 mg/dl (65-105)
[2023-05-04 14:00] VITALS: BP 146/86; PULSE 112; RESP 16; TEMP 36.3; O2SAT 98
[2023-05-04 16:58] LABS: Glucose Point of Care 124 mg/dl (65-105)
[2023-05-04 20:00] VITALS: O2SAT 97
[2023-05-04 20:13] LABS: Glucose Point of Care 133 mg/dl (65-105)
[2023-05-04 21:12] VITALS: BP 152/77; PULSE 94; RESP 18; TEMP 36.9; O2SAT 97
[2023-05-04] MEDS: GABAPENTIN 300 MG CAPSULE PO (21:16)
[2023-05-04] MEDS: ATORVASTATIN 40 MG TABLET 80 MG PO (21:16)
[2023-05-04] MEDS: MELATONIN 5 MG TABLET PO (21:17)
[2023-05-05 05:34] VITALS: BP 136/68; PULSE 99; RESP 18; TEMP 36.6; O2SAT 94
[2023-05-05] MEDS: SODIUM CHLORIDE 0.9% IV 1,000 ML 125 ML IV CONT (06:20)
[2023-05-05 07:21] LABS: Glucose Point of Care 100 mg/dl (65-105)
--- NOTE | 2023-05-05 09:34 | PM.IMPN ---
Progress Note: A&P Assessment and Plan (1) Urinary tract infection: Code(s): N39.0 - Urinary tract infection, site not specified Status: Acute (2) Atrial fibrillation: Code(s): I48.91 - Unspecified atrial fibrillation Status: Acute (3) Chronic anticoagulation: Code(s): Z79.01 - continuous churn buttermaker (current) use of anticoagulants Status: Acute (4) Hypertension: Code(s): I10 - Essential (primary) hypertension Status: Acute (5) Type 2 diabetes mellitus: Code(s): E11.9 - Type 2 diabetes mellitus without complications Status: Acute (6) Sepsis: Code(s): A41.9 - Sepsis, unspecified organism Status: Acute Plan The patient presented to the emergency department for evaluation of multiple complaints, mainly weakness and fatigue. Sepsis Patient has leukocytosis 12,500, left shift, tachycardia tachypnea, likely resulting from UTI Urine culture grows Klebsiella pneumonia, not resistant to Levaquin Received fluid resuscitation UTI Patient has pyuria on urinalysis, urine some post closely Urine culture grows Klebsiella Received IV antibiotics 3 days, will change to Levaquin 500 mg daily p.o. at dischage Chronic AFib she is chronically in atrial fibrillation is rate controlled. Continue carvedilol and apixaban for stroke prophylaxis. Type 2 diabetes Random glucose was 145. Continue Januvia. Continue sliding scale insulin, Accu-Cheks, and hypoglycemic protocol. Check hemoglobin A1c. Hypertension Continue amlodipine 5 mg daily p.o. carvedilol 6 of to 5 mg daily p.o. Hyperlipidemia Continue Lipitor 80 mg daily p.o. pt can be discharged to SNF today Subjective Date/time seen: 05/05/23 09:34 Interval history: I saw exam patient today. Patient feels better today denies dysuria, abdomen pain, nausea vomiting. Exam Narrative: General:?Nontoxic-appearing female sitting up in bed in no acute distress. Weight: 82 kg. BMI: 32.0. HEENT:?Wearing corrective lenses. PERRL, EOMI. Sclera anicteric. Mouth is a bit?dry.? She is edentulous. Neck:??Supple. Respiratory:?Lungs are clear to auscultation bilaterally. Cardiovascular:??Regular rate and rhythm with S1-S2.? Gastrointestinal:??Abdomen is soft, obese, nontender, and nondistended with positive bowel sounds. No CVA tenderness. Skin:??Warm and dry. Generalized pallor. Extremities:??No cyanosis or clubbing. Trace lower extremity bilaterally. Musculoskeletal: right hip externally rotated and her knee flexed, chronically stuck in that position, she cannot straighten the leg or bear weight on it. Neurological:??Alert and oriented.? Cranial nerves 2-12 are grossly intact. Bilateral lower extremities are weak due to atrophy; patient is wheelchair-bound Psychiatric:??Pleasant and cooperative with normal mood and affect.? Judgment and insight intact. Objective Data Vital Signs Vital Signs: Vital Signs - 24 hr 05/04/23 14:00 05/04/23 21:12 05/04/23 20:00 Temperature 97.3 F L 98.5 F Pulse Rate 112 H 94 Respiratory Rate 16 18 Blood Pressure 146/86 H 152/77 H Pulse Oximetry 98 97 97 Oxygen Delivery Room Air 05/05/23 05:34 Temperature 97.8 F Pulse Rate 99 Respiratory Rate 18 Blood Pressure 136/68 Pulse Oximetry 94 Oxygen Delivery Intake/Output Intake/Output: Intake & Output 05/02/23 05/03/23 05/04/23 05/05/23 23:59 23:59 23:59 23:59 Intake Total 390 4510 1240 Output Total 1250 Balance 390 3260 1240 Meds/Results Medications: Active Medications Generic Name Dose Route Start Last Admin Trade Name Freq PRN Reason Stop Dose Admin Acetaminophen 650 mg 05/03/23 22:00 Acetaminophen 325 Mg Tablet PO PRN PRN Pain Amlodipine Besylate 5 mg 05/04/23 09:00 05/04/23 08:44 Amlodipine Besylate 5 Mg Tablet PO 5 mg DAILY ELIZABETH Administration Apixaban 5 mg 05/04/23 09:00 05/04/23 21:16 Apixaban 5 Mg Tablet PO 5 mg Q12HR ELIZABETH Administration Artifi
[2023-05-05] MEDS: lisinopriL 20 MG TABLET 40 MG PO (09:48)
[2023-05-05] MEDS: FLUTICASONE PROPIONATE 0.05% NA SPR 16 GM BTL (*BKC) 1 SPRAY NASAL (09:48)
[2023-05-05] MEDS: MAGNESIUM OXIDE 400 MG TABLET PO (09:48)
[2023-05-05 09:49] VITALS: PULSE 72
[2023-05-05] MEDS: CITALOPRAM HYDROBROMIDE 20 MG TABLET PO (09:49)
[2023-05-05] MEDS: LORATADINE 10 MG TABLET PO (09:49)
[2023-05-05] MEDS: carvediloL 6.25 MG TABLET PO (09:49)
[2023-05-05] MEDS: PANTOPRAZOLE 40 MG TABLET PO (09:49)
[2023-05-05] MEDS: amLODIPine BESYLATE 5 MG TABLET PO (09:49)
[2023-05-05] MEDS: FERROUS SULFATE 325 MG TABLET DR PO ×2 (09:49→14:15)
[2023-05-05] MEDS: POTASSIUM CHLORIDE 20 MEQ ER TABLET PO (09:49)
[2023-05-05] MEDS: APIXABAN 5 MG TABLET PO (09:49)
[2023-05-05] MEDS: ARTIFICIAL TEARS OPHTH SOLN 15 ML BOTTLE 1 DROP EACH EYE (09:49)
[2023-05-05 10:18] LABS: Basophils Absolute Auto 0.1 K/mm3 (0.0-0.1); Basophils Percent Auto 0.8 % (0.2-1.2); Eosinophils Absolute Auto 0.3 K/mm3 (0-0.3); Eosinophils Percent Auto 2.6 % (0-4.4); Hematocrit 35.3 % (37.0-47.0); Hemoglobin 11.2 g/dL (12.0-15.0); Immature Granulocyte Absolute 0.04 K/mm3 (0.00-0.031); Immature Granulocyte Percent A 0.4 % (0-0.5); Lymphocytes Absolute Auto 2.76 K/mm3 (0.9-3.2); Lymphocytes Percent Auto 28.2 % (18.3-44.2); Mean Corpuscular HGB Conc 31.7 g/dl (32-36); Mean Corpuscular Hemoglobin 28.4 pg (26-34); Mean Corpuscular Volume 89.4 fl (80-100); Monocytes Absolute Auto 0.9 K/mm3 (0.1-0.6); Monocytes Percent Auto 9.2 % (2.6-8.5); Neutrophils Absolute Auto 5.8 K/mm3 (1.3-6.7); Neutrophils Percent Auto 58.8 % (45.5-73.1); Platelet Count Result 252 k/mm3 (150-375); Red Blood Count 3.95 M/mm3 (4.2-5.4); Red Cell Distribution Width 15.3 % (11.5-14.5); White Blood Count 9.8 K/mm3 (4.5-10.0)
[2023-05-05 10:28] LABS: Anion Gap 7 mmol/L (8-16); Blood Urea Nitrogen 4 mg/dL (7-17); Calcium 8.5 mg/dL (8.4-10.2); Carbon Dioxide 23 mmol/L (22-30); Chloride 108 mmol/L (98-107); Estimated CRCL calculation 64 ml/min; Estimated Glomerular Filt Rate > 60; Glucose 178 mg/dL (65-110); Potassium 3.3 mmol/L (3.4-5.0); Sodium 138 mmol/L (137-145)
[2023-05-05 11:12] LABS: Glucose Point of Care 172 mg/dl (65-105)
--- NOTE | 2023-05-05 12:40 | PM.DS ---
DS: Admitting Diagnosis Discharge Date 05/05/23 Admitting Diagnosis (1) Urinary tract infection: ?Code(s): N39.0 - Urinary tract infection, site not specified ?Status:?Acute (2) Atrial fibrillation: ?Code(s): I48.91 - Unspecified atrial fibrillation ?Status:?Acute (3) Chronic anticoagulation: ?Code(s): Z79.01 - terminal supervisor (current) use of anticoagulants ?Status:?Acute (4) Hypertension: ?Code(s): I10 - Essential (primary) hypertension ?Status:?Acute (5) Type 2 diabetes mellitus: ?Code(s): E11.9 - Type 2 diabetes mellitus without complications ?Status:?Acute (6) Sepsis: ?Code(s): A41.9 - Sepsis, unspecified organism ?Status:?Acute DS: Discharge Diagnosis Discharge Diagnosis (1) Urinary tract infection: Code(s): N39.0 - Urinary tract infection, site not specified Status: Acute (2) Atrial fibrillation: Code(s): I48.91 - Unspecified atrial fibrillation Status: Acute (3) Chronic anticoagulation: Code(s): Z79.01 - residential (current) use of anticoagulants Status: Acute (4) Hypertension: Code(s): I10 - Essential (primary) hypertension Status: Acute (5) Type 2 diabetes mellitus: Code(s): E11.9 - Type 2 diabetes mellitus without complications Status: Acute (6) Sepsis: Code(s): A41.9 - Sepsis, unspecified organism Status: Acute DS: Summary Hospital Course Hospital Course: The patient presented to the emergency department for evaluation of multiple complaints, mainly weakness and fatigue. The following medical issues have been addressed during hospitalization Sepsis Patient has leukocytosis 12,500, left shift, tachycardia tachypnea, likely resulting from UTI Urine culture grows Klebsiella pneumonia, not resistant to Levaquin Received fluid resuscitation UTI Patient has pyuria on urinalysis, urine some post closely Urine culture grows Klebsiella Received IV antibiotics 3 days, will change to Levaquin 500 mg daily p.o. at dischage Chronic AFib she is chronically in atrial fibrillation is rate controlled. Continue carvedilol and apixaban for stroke prophylaxis. Type 2 diabetes Random glucose was 145. Continue Januvia. Continue sliding scale insulin, Accu-Cheks, and hypoglycemic protocol. Check hemoglobin A1c. Hypertension Continue amlodipine 5 mg daily p.o. carvedilol 6 of to 5 mg daily p.o. Hyperlipidemia Continue Lipitor 80 mg daily p.o. pt can be discharged to SNF today Time Spent with Patient Time attestation: Total time spent providing and/or coordinating discharge services: Exam Narrative: General:?Nontoxic-appearing female sitting up in bed in no acute distress. Weight: 82 kg. BMI: 32.0. HEENT:?Wearing corrective lenses. PERRL, EOMI. Sclera anicteric. Mouth is a bit?dry.? She is edentulous. Neck:??Supple. Respiratory:?Lungs are clear to auscultation bilaterally. Cardiovascular:??Regular rate and rhythm with S1-S2.? Gastrointestinal:??Abdomen is soft, obese, nontender, and nondistended with positive bowel sounds. No CVA tenderness. Skin:??Warm and dry. Generalized pallor. Extremities:??No cyanosis or clubbing. Trace lower extremity bilaterally. Musculoskeletal: right hip externally rotated and her knee flexed, chronically stuck in that position, she cannot straighten the leg or bear weight on it. Neurological:??Alert and oriented.? Cranial nerves 2-12 are grossly intact. Bilateral lower extremities are weak due to atrophy; patient is wheelchair-bound Psychiatric:??Pleasant and cooperative with normal mood and affect.? Judgment and insight intact. DS: Data Data Completed and Pending Labs on day of discharge: Labs from last 24 hours 05/05/23 05/05/23 05/05/23 11:06 09:56 07:17 WBC 9.8 RBC 3.95 L Hgb 11.2 L Hct 35.3 L MCV 89.4 MCH 28.4 MCHC 31.7 L RDW 15.3 H Plt Count 252 MPV 10.0 Immature Gran % (Auto) 0.4
[2023-05-05 14:00] VITALS: BP 126/56; PULSE 74; RESP 16; TEMP 36.4; O2SAT 94
--- NOTE | 2023-05-05 15:45 | PC.NURSE ---
Pt discharged back to [facility] and rehab by [facility]. Pt belongings were sent with pt. Pt denies any pain and has been compliant with care. Report was called at 1513. Receiving nurse was at lunch so oncoming nurse took report. Pt IV's were removed tip intact, pt tolerated well. Pt has participated and contributed in plan of care. Pt has been monitored for any changes in status while here.
[2023-05-05 15:52] LABS: SARS-CoV-2 RNA PCR Negative (Negative)
== END 2023-05-05 15:45 | DRG 872 ==
LOC: ANHED 10:16 → ANH3MEDSUR 14:48
PROVIDERS: Emergency Medicine; Internal Medicine; Physician Assistant; Admitting Provider Internal Medicine; Emergency Provider Physician Assistant; Visit Provider Hospitalist
DX: A41.9 Sepsis, unspecified organism (principal); N39.0 Urinary tract infection, site not specified; I69.351 Hemiplegia and hemiparesis following cerebral infarction affecting right dominant side; B96.1 Klebsiella pneumoniae [K. pneumoniae] as the cause of diseases classified elsewhere; E11.9 Type 2 diabetes mellitus without complications; I10 Essential (primary) hypertension; I48.91 Unspecified atrial fibrillation; K21.9 Gastro-esophageal reflux disease without esophagitis; Z11.52 Encounter for screening for COVID-19; Z79.4 Long term (current) use of insulin; Z79.01 Long term (current) use of anticoagulants; Z90.49 Acquired absence of other specified parts of digestive tract; Z90.710 Acquired absence of both cervix and uterus; Z88.0 Allergy status to penicillin
CPT/HCPCS: 36415; 71046; 74177; 80048; 80053; 81001; 82948; 83735; 83880; 84484; 85025; 85027; 85380; 87040; 87077; 87086; 87186; 87635; 87637; 93005; 96365; 96366; 99285; A9270; G0378; J0696; J1956; J7030; Q9967

== ENCOUNTER 2025-05-14 11:50 | Emergency (ER) | payer MEDICARE, MEDICAID, SELFPAY ==
--- NOTE | ~2025-05-14 | XR_ITS ---
EXAMINATION: XR chest 1V, 05/14/2025 13:35 FOOD SERVICE SPECIALIST HISTORY: COUGH COMPARISON: No comparisons available. Technique: Single view. Findings: The lungs are clear, no effusion. No pneumothorax. Heart is normal size. Mediastinal and hilar contours are within normal limits. Bony thorax no acute abnormality. Impression: No acute cardiopulmonary abnormality. Reviewed, dictated and finalized at location P. SERVICE SPECIALIST Impression: No acute cardiopulmonary abnormality.
--- NOTE | ~2025-05-14 | XR_ITS ---
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 Findings: Severe osteopenia. There are partially imaged nondisplaced fractures of the distal tibia and fibula. Severe degenerative changes. Extensive soft tissue vascular calcifications are noted. Impression: Partially imaged fractures of the distal tibia and fibula. Dedicated imaging is recommended Reviewed, dictated and finalized at location P. NSION SERVICE SPECIALIST IN CHARGE Impression: Partially imaged fractures of the distal tibia and fibula. Dedicated imaging is recommended
--- NOTE | ~2025-05-14 | XR_ITS ---
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 Findings: Severe osteopenia. There is an impacted displaced fracture of the distal tibia. There is a nondisplaced angulated fracture of the distal fibula. Moderate degenerative changes. Extensive soft tissue vascular calcifications. Impression: Fractures detailed above Reviewed, dictated and finalized at location P. MOBILE DAMAGE APPRAISER Impression: Fractures detailed above
--- NOTE | ~2025-05-14 | CT_ITS ---
Rashaun Pimentel EXAMINATION: CT abdomen pelvis w con COMPARISON: Comparison 05/03/2023. HISTORY: LEFT LOWER QUADRANT PAIN TECHNIQUE: Axial images were obtained through the abdomen, pelvis post administration of IV contrast. Oral contrast was also administered. Coronal reconstruction images were obtained from the axial views. CT scan performed using dose optimization techniques including the following automated exposure control; adjustment of mA and/or kV; use of iterative reconstruction technique. Automatic exposure control was used to reduce radiation dose. Permanent radiation dose record is archived to PACS. FINDINGS: CT abdomen: LUNG BASES: The lung bases demonstrate scattered calcified granulomas. LIVER: Minimal hepatic steatosis. The portal vein is patent. There is no intrahepatic biliary duct dilatation. SPLEEN: Unremarkable. KIDNEYS: Right Kidney: Unremarkable. No calculi. No hydronephrosis. Left Kidney: Unremarkable. No calculi. No hydronephrosis ADRENAL GLANDS: Unremarkable. PANCREAS: Unremarkable. GALLBLADDER/BILIARY: Post cholecystectomy. STOMACH AND ESOPHAGUS: Small hiatal hernia. The remaining stomach appears decompressed. BOWEL/MESENTERY: There is thickening of the junction of the descending and sigmoid colon consistent with acute diverticulitis, there is no perforation or abscess. Appendix normal. Remaining mesentery normal. There are no thickened or dilated loops of small bowel. ADENOPATHY/RETROPERITONEUM: No lymphadenopathy. AORTA/VASCULATURE: Normal caliber aorta. FREE FLUID OR FREE AIR: No free fluid.. CT pelvis: SOLID ORGANS/REPRODUCTIVE: Post hysterectomy. BLADDER: There is thickening of the bladder wall and perivesical stranding and mucosal hyperemia. OSSEOUS STRUCTURES: No acute osseous abnormality.No suspicious lesions. OVERLYING SOFT TISSUES: Unremarkable. IMPRESSION: Acute diverticulitis. No perforation or abscess. 2. Severe cystitis. Reviewed, dictated and finalized at location P. KNITTER
[2025-05-14 12:37] LABS: Hematocrit 39.3 % (37.0-47.0); Hemoglobin 12.9 g/dL (12.0-15.0); Immature Granulocyte Percent A 0.6 % (0-0.5); Lymphocytes Absolute Auto 2.34 K/mm3 (0.9-3.2); Mean Corpuscular HGB Conc 32.8 g/dl (32-36); Mean Corpuscular Hemoglobin 30.1 pg (26-34); Mean Corpuscular Volume 91.8 fl (80-100); Nucleated Red Blood Cells Absolute Auto 0.000 K/mm3 (0.0-0.012); Nucleated Red Blood Cells Perc 0.0 % (0.0-0.2); Platelet Count Result 345 k/mm3 (150-375); Red Blood Count 4.28 M/mm3 (4.2-5.4); White Blood Count 16.1 K/mm3 (4.5-10.0)
[2025-05-14 12:50] LABS: Add Urine Microscopic? YES; Appearance Urine Turbid (Clear); Glucose Urine UA 2+ mg/dL (Negative); Leukocyte Esterase Ur 3+ LEU/UL (Negative); Need Manual Microscopic Reviewed; Nitrate Urine Positive (Negative); Specific Grav Ur 1.022 (1.001-1.035)
--- NOTE | 2025-05-14 13:16 | ED.ABDPAIN ---
HPI - Abdominal Pain General Chief Complaint: Abdominal Pain Stated Complaint: Abd Pain Time Seen by Provider: 05/14/25 12:10 Source: patient and EMS Mode of arrival: EMS History of Present Illness HPI narrative: LEFT LOWER QUADRANT PAIN WITH COUGHING STARTED LAST NIGHT. PATIENT ALSO COMPLAINING OF LEFT FOOT PAIN FOR 3 MONTHS WITHOUT SPECIFIC DIAGNOSIS. SHE DENIES ANY FEVER CHILLS NAUSEA VOMITING DIARRHEA CONSTIPATION CHEST PAIN OR SHORTNESS OF BREATH. Related Data Home Medications ?Medication ?Instructions ?Recorded ?Confirmed ?Last Taken ?Type acetaminophen 325 mg capsule 650 mg PO PRN PRN Pain 10/27/22 05/03/23 Unknown History (Tylenol) amlodipine 5 mg tablet 5 mg PO DAILY 10/27/22 05/03/23 Unknown History apixaban 5 mg tablet (Eliquis) 5 mg PO BID 10/27/22 05/03/23 Unknown History atorvastatin 80 mg tablet 80 mg PO HS 10/27/22 05/03/23 Unknown History carvedilol 6.25 mg tablet (Coreg) 6.25 mg PO DAILY 10/27/22 05/03/23 Unknown History citalopram 10 mg tablet 20 mg PO DAILY 10/27/22 05/03/23 Unknown History gabapentin 300 mg capsule 300 mg PO HS 10/27/22 05/03/23 Unknown History lisinopril 40 mg tablet 40 mg PO DAILY 10/27/22 05/03/23 Unknown History loratadine 10 mg tablet (Claritin) 10 mg PO DAILY 10/27/22 05/03/23 Unknown History polysorbate 80-glycerin 1 %-1 % 1 drp ophthalmic (eye) BID 10/27/22 05/03/23 Unknown History eye drops in a dropperette potassium chloride 20 mEq 20 meq PO DAILY 10/27/22 05/03/23 Unknown History tablet,extended release sitagliptin phosphate 50 mg tablet 50 mg PO DAILY 10/27/22 05/03/23 Unknown History (Januvia) [id number]-bhebevr-tkzwpupvpeopz 1 michael mucous membrane PRN PRN Sore 05/04/23 05/04/23 Unknown History 10 mg-2.5 mg lozenges Throat benzonatate 100 mg capsule 100 mg PO TID PRN Cough 05/04/23 05/04/23 Unknown History dapagliflozin propanediol 5 mg 5 mg PO DAILY 05/04/23 05/04/23 Unknown History tablet (Farxiga) ergocalciferol (vitamin D2) 50 mcg 2,000 unit PO DAILY 05/04/23 05/04/23 Unknown History (2,000 unit) tablet ferrous sulfate 325 mg (65 mg 325 mg PO TID 05/04/23 05/04/23 Unknown History iron) tablet insulin aspart U-100 100 unit/mL 100 sliding scale dose subcut ACHS 05/04/23 05/04/23 Unknown History (3 mL) subcutaneous pen insulin glargine 100 unit/mL (3 30 unit subcut HS 05/04/23 05/04/23 Unknown History mL) subcutaneous pen loperamide 2 mg tablet 2 mg PO DAILY PRN Diarrhea 05/04/23 05/04/23 Unknown History simethicone 125 mg chewable tablet 125 mg PO QID PRN flatulence 05/04/23 05/04/23 Unknown History Allergies Allergy/AdvReac Type Severity Reaction Status Date / Time Penicillins Allergy Swelling Verified 11/07/22 11:54 of Lip/Tongue/Throat Review of Systems Review of Systems: All systems reviewed & are unremarkable except as noted in HPI and below PMFSH Past Medical History Medical History Chronic anticoagulation Leukemia (1977) Arteriovenous malformation of gastrointestinal tract Cerebrovascular accident Hemiplegia of right dominant side due to cerebrovascular disease GERD with esophagitis Atrial fibrillation Type 2 diabetes mellitus Hypertension Surgical History Surgical History History of hysterectomy History of tonsillectomy History of cholecystectomy Family History Family History Father Acute myocardial infarction Mother Acute myocardial infarction Cerebrovascular accident Hypertension Breast cancer Other No problems noted. Grandparent Hypertension Social History Social History Social History: Surrogate medical decision maker: Myriam Cohn, daughter. Code status: Full code. Smoking status: Never smoker Second hand tobacco smoke exposure: Yes (as a child) Alcohol intake: never Substance use: never Lack of Transportation: No Lack of Food: Never True Current Housing: I Have Housing Concerned About Future Housing: No Difficulty Paying Gas/Electric Bills: No Difficulty Paying for Meds: No Currently Unemployed: No Education: High School Diploma/GED Difficulty w/ Childcare or Family Care: No Additional living arrangements comments: [facility]. Spiritual care concerns: Yes (Hoahaoism) Exam Narrative: GENERAL APPEARANCE: WELL-DEVELOPED, WELL-NOURISHED SKIN: NORMAL COLOR HEAD: NORMOCEPHALIC, NONTRAUMATIC EYES: CLEAR CONJUNCTIVA ENT: OROPHARYNX NORMAL, EARS NORMAL, NOSE NORMAL NECK: SUPPLE, NONTENDER CHEST AND RESPIRATORY: AIRWAY PATENT, NO RESPIRATORY DISTRESS, NO ACCESSORY MUSCLE USE HEART: REGULAR RATE/RHYTHM ABDOMEN: SOFT, DIFFUSE TENDERNESS MORE AT THE LEFT LOWER QUADRANT, NO ORGANOMEGALY, QUIET BOWEL SOUNDS VASCULAR: NORMAL PERIPHERAL PULSES, NORMAL CAPILLARY REFILL. MUSCULOSKELETAL: DIFFUSE TENDERNESS OF THE LEFT FOOT, NO BRUISES, NO SWELLING, NO RASH NO ERYTHEMA NEUROLOGIC: ALERT AND ORIENTED ?3, ASSISTED LIVING ASSOCIATE IS NORMAL TESTED, NO GROSS MOTOR DEFICIT [facility] Narrative Medical decision making narrative: PATIENT CAME TO THE ED WITH LEFT LOWER QUADRANT PAIN WITH COUGHING PHYSICAL EXAMINATION SHOWING TENDERNESS LEFT LOWER QUADRANT AND DIFFUSE TENDERNESS OF THE LEFT FOOT DIFFERENTIAL DIAGNOSIS DIVERTICULITIS, COLITIS, CONSTIPATION, URINARY TRACT INFECTION, BLOOD WORKUP TODAY INCLUDES CBC, CMP, LIPASE, LACTIC ACID SHOWED WBC 16.1, SODIUM 131, Urinalysis showed evidence of infection Patient tested negative for COVID flu and RSV A CT abdomen and pelvis with IV contrast showed cystitis and diverticulitis X-ray of the left ankle showed fracture distal fibula and tibia. Later patient's family came over and told me that patient fractured her left ankle last month and was told by the [place] physician that nothing can be done at that time and because she immobile surgery is not recommended. Left ankle splint placed, Levaquin IV 750 mg given prior to discharge. Diagnosis diverticulitis, left ankle fracture Discharged on Levaquin, metronidazole and to follow-up with orthopedic for further evaluation. The pt was discharged to home.the pt,s condition upon discharge was fair,education was provided to the pt in reference to the final impression,discharge study results,treatment,prognosis and need for follow up . Differential Diagnosis Differential Diagnosis: As above Medical Records I have reviewed the following patient records and this information was taken into consideration when formulating the assessment and plan.: previous labs, previous ER visits, previous hospitalizations and previous clinic visits Lab Data [facility] Lab Attestation statement: I personally reviewed the patient's lab results. 12/06/25 12:30 05/14/25 13:14 Labs: Lab Results 05/14/25 05/14/25 05/14/25 Range/Units 12:30 13:14 13:53 WBC 16.1 H (4.5-10.0) K/mm3 RBC 4.28 (4.2-5.4) M/mm3 Hgb 12.9 (12.0-15.0) g/dL Hct 39.3 (37.0-47.0) % MCV 91.8 (80-100) fl MCH 30.1 (26-34) pg MCHC 32.8 (32-36) g/dl RDW 15.4 H (11.5-14.5) % Plt Count 345 (150-375) k/mm3 MPV 9.2 (7.4-10.4) fl Immature Gran % (Auto) 0.6 H (0-0.5) % Neut % (Auto) 76.0 H (45.5-73.1) % Lymph % (Auto) 14.5 L (18.3-44.2) % Atkinson % (Auto) 7.8 (2.6-8.5) % Eos % (Auto) 0.6 (0-4.4) % Baso % (Auto) 0.5 (0.2-1.2) % Lymph # (Auto) 2.34 (0.9-3.2) K/mm3 Atkinson # (Auto) 1.3 H (0.1-0.6) K/mm3 Eos # (Auto) 0.1 (0-0.3) K/mm3 Baso # (Auto) 0.1 (0.0-0.1) K/mm3 Abs Immat Gran (auto) 0.09 H (0.00-0.031) K/mm3 Absolute Neuts (auto) 12.2 H (1.3-6.7) K/mm3 Absolute Nucleated RBC 0.000 (0.0-0.012) K/mm3 Nucleated RBC % 0.0 (0.0-0.2) % Sodium 131 L (137-145) mmol/L Potassium 4.8 (3.4-5.0) mmol/L Chloride 106 (98-107) mmol/L Carbon Dioxide 19 L (22-30) mmol/L Anion Gap 6 (4-12) mmol/L BUN 17 D (7-17) mg/dL Creatinine 0.88 (0.7-1.0) mg/dL Estim Creat Clear Calc 49 ml/min Estimated GFR > 60 (59 - ) Glucose 110 (65-110) mg/dL Calcium 9.0 (8.4-10.2) mg/dL Total Bilirubin 0.8 (0.2-1.3) mg/dL AST 33 (14-36) U/L ALT 12 (6-35) U/L Alkaline Phosphatase 119 (38-126) U/L Total Protein 7.5 (6.3-8.2) g/dL Albumin 3.7 (3.5-5.1) g/dL Lipase 163 (23-300) U/L Urine Color Dark yellow (Yellow) Urine Appearance Turbid H (Clear) Urine pH 5.0 (5.0-9.0) Ur Specific Sayner 1.022 (1.001-1.035) Urine Protein 2+ H (Negative) mg/dL Urine Glucose (UA) 2+ H (Negative) mg/dL Urine Ketones Trace H (Negative) mg/dL Ur Blood (Man) 3+ H (Negative) Urine Nitrate Positive H (Negative) Urine Bilirubin Negative (Negative) Urine Urobilinogen 1.0 (<2.0) mg/dL Add Ur Microanalysis Reviewed Leukocyte Esterase Rfl 3+ H (Negative) LEXY/UL Urine RBC >100 H (0-2) /hpf Urine WBC >100 H (0-3) /hpf Ur Squamous Epith Cells Moderate (Few) /hpf Urine Bacteria 4+ H /hpf Urine Casts 11-20 Influenza A (RT-PCR) Negative (Negative) Influenza B (RT-PCR) Negative (Negative) RSV (RT-PCR) Negative (Negative) SARS-CoV-2 RNA (RT-PCR) Negative (Negative) Imaging Data Radiologist's impression: ITS Impressions Chest X-Ray 05/14/25 14:07 Impression: No acute cardiopulmonary abnormality. Foot X-Ray 05/14/25 14:08 Impression: Partially imaged fractures of the distal tibia and fibula. Dedicated imaging is recommended Ankle X-Ray 05/14/25 14:09 Impression: Fractures detailed above Abdomen/Pelvis CT 05/14/25 14:33 IMPRESSION: Acute diverticulitis. No perforation or abscess. 2. Severe cystitis. Critical Care Time Critical Care Time Critical Care Time: Yes Time Type: Intermittent Initial evaluation, discuss w/ involved parties, attempting to gather old records: 10 minutes Documenting medical record: 5 minutes Review of results (EKG's, labs, imaging): 5 minutes Serial repeat bedside evaluation: 10 minutes Discussing case with multiple memebers of the care team and consultants: N/A Total Critical Care Time: 30 Discharge Plan Discharge Clinical Impression: Urinary tract infection, Diverticulitis, Ankle fracture, left Patient Disposition: [facility]As[facility] Living Condition: Stable Instructions: Antibiotic Form, Diverticulitis (DC), Ankle Fracture (ED), Urinary Tract Infection in Women (ED), Diverticulitis Diet (ED) Additional Instructions: RETURN IF SYMPTOMS ARE WORSENING , CALL YOUR FAMILY PHYSICIAN FOR APPOINTMENT, TAKE TYLENOL NEEDED FOR ACHES AND PAIN, CONTINUE HOME MEDICATIONS. Patient Language: Maltese Prescriptions: New levofloxacin 750 mg tablet 750 mg PO DAILY Qty: 6 5RF metronidazole 500 mg tablet 500 mg PO Q8H 7 Days Qty: 21 0RF No Action atorvastatin 80 mg Tablet 80 mg PO HS carvedilol [Coreg] 6.25 mg Tablet 6.25 mg PO DAILY citalopram 10 mg Tablet 20 mg PO DAILY gabapentin 300 mg Capsule 300 mg PO HS lisinopril 40 mg Tablet 40 mg PO DAILY loratadine [Claritin] 10 mg Tablet 10 mg PO DAILY polysorbate 80-glycerin 1-1 % Dropperette 1 drp OPHTHALMIC (EYE) BID Rx Instructions: both eyes Eliquis 5 mg Tablet 5 mg PO BID acetaminophen [Tylenol] 325 mg Capsule 650 mg PO PRN PRN (Reason: Pain) Januvia 50 mg Tablet 50 mg PO DAILY amlodipine 5 mg tablet 5 mg PO DAILY potassium chloride 20 mEq Tablet Extended Release 20 meq PO DAILY magnesium oxide 400 mg (241.3 mg magnesium) Tablet 400 mg PO QAM Qty: 30 0RF pantoprazole [Protonix] 40 mg tablet,delayed release (DR/EC) 40 mg PO BID 56 Days Qty: 112 0RF loperamide 2 mg Tablet 2 mg PO DAILY PRN (Reason: Diarrhea) Rx Instructions: administer after each loose stool until symptoms controlled; do not exceed 8 mg per 24 hrs benzonatate 100 mg Capsule 100 mg PO TID PRN (Reason: Cough) ferrous sulfate 325 mg (65 mg iron) Tablet 325 mg PO TID simethicone 125 mg Tablet,Chewable 125 mg PO QID PRN (Reason: flatulence) [id number]-ypfeviy-mmuwrqofih 10-2.5 mg Lozenge 1 michael MUCOUS MEMBRANE PRN PRN (Reason: Sore Throat) insulin aspart U-100 100 unit/mL (3 mL) insulin pen 100 sliding scale dose subcut ACHS insulin glargine 100 unit/mL (3 mL) insulin pen 30 unit SUBCUT HS ergocalciferol (vitamin D2) 50 mcg (2,000 unit) Tablet 2,000 unit PO DAILY Farxiga 5 mg tablet 5 mg PO DAILY levofloxacin 500 mg tablet 500 mg PO DAILY Qty: 4 0RF Follow-up/Referrals: PHYSICIAN,SLOT HOST [Primary Care Provider, Internal Medicine] Enio Mauro MD [Physician, Orthopedics] - 05/16/25
[2025-05-14 13:32] LABS: Alanine Aminotransferase 12 U/L (6-35); Albumin Level 3.7 g/dL (3.5-5.1); Alkaline Phosphatase 119 U/L (38-126); Anion Gap 6 mmol/L (4-12); Aspartate Amino Transferase 33 U/L (14-36); Bilirubin,Total 0.8 mg/dL (0.2-1.3); Blood Urea Nitrogen 17 mg/dL (7-17); Calcium 9.0 mg/dL (8.4-10.2); Carbon Dioxide 19 mmol/L (22-30); Chloride 106 mmol/L (98-107); Estimated CRCL calculation 49 ml/min; Estimated Glomerular Filt Rate > 60; Glucose 110 mg/dL (65-110); Lipase 163 U/L (23-300); Potassium 4.8 mmol/L (3.4-5.0); Sodium 131 mmol/L (137-145); Total Protein 7.5 g/dL (6.3-8.2)
[2025-05-14] MEDS: ONDANSETRON INJ 4 MG/2 ML VIAL IV PUSH (14:34)
[2025-05-14] MEDS: MORPHINE SULFATE (*CRX) 4 MG/ML INJ 2 MG IV PUSH (14:34)
[2025-05-14] MEDS: SODIUM CHLORIDE 0.9% IV 1,000 ML 500 ML IV CONT (14:35)
[2025-05-14] MEDS: levoFLOXacin 750 MG/D5W 150 ML 750 MG/150 ML BAG 100 MG IVPB (15:31)
[2025-05-14 15:43] LABS: Influenza A QL RT-PCR Negative (Negative); Influenza B QL RT-PCR Negative (Negative); RSV RNA, RT-PCR Negative (Negative); SARS-CoV-2 RNA PCR Negative (Negative)
== END 2025-05-14 19:05 ==
PROVIDERS: Emergency Provider Emergency Medicine
DX: N30.90 Cystitis, unspecified without hematuria (principal); K57.32 Diverticulitis of large intestine without perforation or abscess without bleeding; S82.302A Unspecified fracture of lower end of left tibia, initial encounter for closed fracture; S82.832A Other fracture of upper and lower end of left fibula, initial encounter for closed fracture; Z20.822 Contact with and (suspected) exposure to COVID-19; I48.91 Unspecified atrial fibrillation; I10 Essential (primary) hypertension; E11.9 Type 2 diabetes mellitus without complications; K21.00 Gastro-esophageal reflux disease with esophagitis, without bleeding; Z86.73 Personal history of transient ischemic attack (TIA), and cerebral infarction without residual deficits; Z85.6 Personal history of leukemia; Z90.710 Acquired absence of both cervix and uterus; Z77.22 Contact with and (suspected) exposure to environmental tobacco smoke (acute) (chronic); Z79.899 Other long term (current) drug therapy; Z79.84 Long term (current) use of oral hypoglycemic drugs; Z79.4 Long term (current) use of insulin; X58.XXXA Exposure to other specified factors, initial encounter
CPT/HCPCS: 29515; 36415; 71045; 73610; 73630; 74177; 80053; 81001; 83690; 85025; 87637; 96361; 96365; 96375; 99284; A9270; J1956; J2270; J2405; J7030; Q9967